=== PATIENT | female | born 1970 | race African-American/Black ===

== ENCOUNTER 2016-08-12 19:52 | Emergency (ER) | payer MEDICAID, OTHER ==
[~2016-08-12] VITALS: Ht 129.5 cm; Wt 73.9 kg
[2016-08-12 20:05] VITALS: BP 120/74
[2016-08-12] MEDS ORDERED: Famotidine 20 MG/ 2ML VIAL IVP ONE (20:15)
[2016-08-12] MEDS ORDERED: Ketorolac 30mg Inj IV ONE (20:15)
[2016-08-12 21:31] LABS: APPEARANCE,URINE CLEAR; KETONES,URINE 1+ (NEGATIVE); LEUKOCYTE ESTERASE ,URINE 1+ (NEGATIVE); NITRITE,URINE NEGATIVE (NEGATIVE); PH,URINE 7 (4.5-8.0); PROTEIN,URINE 2+ (NEGATIVE); UROBILINOGEN,URINE NORMAL MG/DL (0.0-1.0)
[2016-08-12 21:34] LABS: BASOPHILS % (AUTO) 0.7 % (0.0-2.0); EOSINOPHILS % (AUTO) 1.5 % (0.0-3.0); LYMPHOCYTES % (AUTO) 34.7 % (20.0-45.0); MEAN CORPUSCULAR HEMOGLOBIN 23.1 PG (27.0-31.0); MEAN CORPUSCULAR HGB CONC 31.5 G/DL (32.0-36.0); MEAN CORPUSCULAR VOLUME 73 FL (80-99); MEAN PLATELET VOLUME 7.1 FL (6.5-10.1); MONOCYTES % (AUTO) 7.3 % (1.0-10.0); NEUTROPHILS % (AUTO) 55.8 % (45.0-75.0); PLATELET COUNT 194 K/UL (150-450); RED BLOOD COUNT 5.18 M/UL (4.20-5.40); RED CELL DISTRIBUTION WIDTH 16.9 % (11.6-14.8); WHITE BLOOD COUNT 6.1 K/UL (4.8-10.8)
[2016-08-12 21:38] LABS: RBC,URINE 0-2 /HPF (0 - 2)
[2016-08-12 21:39] LABS: BACTERIA,URINE FEW /HPF; SQUAMOUS EPITHELIAL CELL,UR FEW /LPF (NONE/OCC)
[2016-08-12 21:45] LABS: ALANINE AMINOTRANSFERASE 35 U/L (3-33); ALBUMIN/GLOBULIN RATIO 0.9 (1.0-2.7); ANION GAP 20 (5-15); ASPARTATE AMINO TRANSFERASE 35 U/L (5-40); CARBON DIOXIDE 20 mEQ/L (20-30); CHLORIDE 86 mEQ/L (98-107); CREATININE 0.9 mg/dL (0.5-0.9); GLOMERULAR FILTRATION RATE > 60 mL/min (>60); HEMOLYSIS 2; LIPASE 40 U/L (< 60); POTASSIUM 4.2 mEQ/L (3.4-4.9); SODIUM 126 mEQ/L (135-145)
[2016-08-12 21:47] LABS: TROPONIN I < 0.30 ng/mL (<=0.30)
[2016-08-12 22:05] VITALS: BP 127/71
[2016-08-12] MEDS ORDERED: Dicyclomine HCl 10mg/5ml oral soln ORAL ONE (22:45)
--- NOTE | 2016-08-12 23:16 | Emergency Room Report ---
History of Present Illness General Chief Complaint: Abdominal Pain Source: Patient Present Illness HPI [id number] with 2-3 days nausea/vomiting, generalized abd pain, watery diarrhea. Prior cholecystectomy. No urinary complaints or fever/chills. Sick contact of mother in hospital recently for SBO. History of DM. Unable to keep liquids down "For days." Unable to eat. Allergies: Coded Allergies: No Known Allergies (Unverified , 08/12/16) Patient History Past Medical History: DM Past Surgical History: sophia Pertinent Family History: none Social History: Denies: alcohol use, drug use, smoking Last Menstrual Period: JULY 17 Now: No Immunizations: UTD Reviewed Nursing Documentation: PMH: Agreed, PSxH: Agreed Nursing Documentation-PMH Hx Hypertension: Yes Hx Diabetes: Yes Review of Systems All Other Systems: negative except mentioned in HPI Physical Exam Vital Signs Date Time Temp Pulse Resp B/P Pulse Ox O2 Delivery O2 Flow Rate FiO2 08/12/16 19:54 98.1 117 18 114/82 99 08/12/16 20:05 Room Air Sp02 EP Interpretation: reviewed, normal General Appearance: normal inspection, well appearing, no apparent distress, alert, GCS 15, non-toxic, obese Head: normocephalic, atraumatic Eyes: bilateral eye EOMI, bilateral eye PERRL ENT: normal ENT inspection, hearing grossly normal, normal voice Neck: normal inspection, full range of motion, supple, no bony tend Respiratory: normal inspection, lungs clear, normal breath sounds, no respiratory distress, no retraction, no wheezing Gastrointestinal: normal inspection, normal bowel sounds, soft, no guarding, no hernia, other - TTP to left lower quadrant Genitourinary: no CVA tenderness Musculoskeletal: normal inspection, back normal, normal range of motion, Arpita' s Sign negative Neurologic: normal inspection, alert, oriented x3, responsive, chief clinical dietitian III-XII nml as tested, motor strength/tone normal, speech normal Psychiatric: normal inspection, judgement/insight normal, mood/affect normal Skin: normal inspection, normal color, no rash Lymphatic: normal inspection Medical Decision Making Diagnostic Impression: Primary Impression: Hyponatremia Additional Impressions: Hyperglycemia Diarrhea Qualified Codes: R19.7 - Diarrhea, unspecified Viral gastroenteritis ER Course Abd pain, nausea/vomiting, diarrhea - Mild HypoNa likely from dehydration. Repleted with NS bolus. - H&H stable. No leuks to suggest acute bacterial or surgical abd process - UA with ketones also suggesting dehydration - Still with abd pain after IV pepcid so CTAP was done - c/w enteritis. No SBO or acute surgical process - Rx Bentylm, zofran, pepcid Encouraged hydration, BRAT diet at home Return to ER if unable to tolerate PO in 1-2 days despite medications DC Home EKG Diagnostic Results Rate: tachycardiac Rhythm: NSR ST Segments: no acute changes ASA given to the pt in ED: No Rhythm Strip Diag. Results EP Interpretation: yes Rate: 95 Rhythm: NSR, no PVC's, no ectopy Last Vital Signs Date Time Temp Pulse Resp B/P Pulse Ox O2 Delivery O2 Flow Rate FiO2 08/12/16 20:05 98.1 111 18 120/74 99 Room Air Status: improved Disposition: HOME, SELF-CARE Scripts Famotidine (PEPCID) 20 Mg Tablet 20 MG ORAL BID for 7 Days, #14 TAB 0 Refills Prov: CHANTELLE POP M.D. 08/12/16 Dicyclomine Hcl* (BENTYL*) 10 Mg Capsule 10 MG ORAL BID for 7 Days, #14 CAP Prov: CHANTELLE POP M.D. 08/12/16 Ondansetron Odt* (ZOFRAN ODT*) 4 Mg Tab.rapdis 4 MG ORAL BID Y for Nausea & Vomiting for 7 Days, #14 TAB 0 Refills Prov: CHANTELLE POP M.D. 08/12/16 Referrals: [facility] (PCP) CHANTELLE POP M.D. Aug 12, 2016 23:16
[2016-08-12] MEDS ORDERED: ZOFRAN ODT4 MG ORAL (23:53)
[2016-08-12] MEDS ORDERED: BENTYL10 MG ORAL (23:53)
[2016-08-12] MEDS ORDERED: PEPCID20 MG ORAL (23:53)
[2016-08-13 00:05] VITALS: BP 115/74
[2016-08-13 00:29] VITALS: BP 115/77
--- NOTE | 2016-08-13 09:35 | Diagnostic Imaging Report ---
Clinical Indication: Abdominal pain Technique: No oral contrast utilized, per emergency room physician request IV administration nonionic contrast. Venous phase spiral acquisition obtained through the abdomen and pelvis. Multiplanar reconstructions were generated. Total dose length product 944 mGycm. CTDIvol(s) 18 mGy. Dose reduction achieved using automated exposure control Comparison: None Findings: No evidence of diverticulosis or diverticulitis. The appendix is normal. Small bowel loops are somewhat prominent, somewhat fluid-filled. A single jejunal loop in the left mid abdomen is mildly dilated. There are normal caliber distal small bowel loops, but no abrupt transition is demonstrated. No free or loculated intraperitoneal air or fluid. The distal esophagus, stomach, duodenum are unremarkable. There are cholecystectomy clips incidentally noted. The liver is somewhat hypoattenuating. No biliary ductal dilatation. Pancreas, spleen, adrenals, kidneys are all unremarkable. No mesenteric or retroperitoneal mass or adenopathy. No pelvic mass or adenopathy. The included lung bases are clear. The bones are unremarkable Impression: Mildly prominent fluid-filled small bowel loops, suspect enteritis. Presence of nondilated distal small bowel raises possibility of partial small bowel obstruction, although this is deemed less likely. Correlate with clinical findings Mild fatty hepatic change Evidence of prior cholecystectomy This agrees with the preliminary interpretation provided overnight by [facility] teleradiology service. The CT scanner at [facility] is accredited by the [employer] and the scans are performed using protocols designed to limit radiation exposure to as low as reasonably achievable to attain images of sufficient resolution adequate for diagnostic evaluation.
--- NOTE | 2016-08-15 12:58 | Cardiology Report ---
APPROVED REPORT EKG Measurement Heart [id number] CT 150P51 [id number] Sinus tachycardia Rightward axis Cannot rule out Inferior infarct, age undetermined Abnormal ECG
== END 2016-08-13 00:33 | disposition home or self-care (01) ==
LOC: EMR 20:45
DX: E87.1 Hypo-osmolality and hyponatremia (principal); R19.7 Diarrhea, unspecified; A08.4 Viral intestinal infection, unspecified; Z90.49 Acquired absence of other specified parts of digestive tract; E11.9 Type 2 diabetes mellitus without complications; I10 Essential (primary) hypertension; E11.65 Type 2 diabetes mellitus with hyperglycemia; R00.0 Tachycardia, unspecified
CPT/HCPCS: 36415; 74177; 80053; 81003; 81025; 83690; 84484; 85025; 93005; 96360; 96374; 96375; 99284; J2405; Q9967; S0028

== ENCOUNTER 2017-10-15 19:59 | Inpatient (IN) | payer MEDICAID, OTHER ==
[~2017-10-15] VITALS: Ht 127 cm; Wt 74.4 kg
[~2017-10-15 19:59] MED LIST: BENTYL10 MG ORAL; PEPCID20 MG ORAL; ZOFRAN ODT4 MG ORAL
[2017-10-15] MEDS ORDERED: DiphenhydrAMINE 50mg/ml Inj IVP ONE (20:30)
[2017-10-15] MEDS ORDERED: Morphine Sulfate 4mg/ml Inj (IV USE ONLY) IVP ONE (20:30)
[2017-10-15] MEDS ORDERED: cefTRIAXone 1 GM in NS 55 ML IV ONE (20:30)
[2017-10-15] MEDS ORDERED: Ketorolac 30mg Inj IV ONE (20:30)
[2017-10-15 21:02] LABS: ANION GAP 8 mmol/L (5-15); BLOOD UREA NITROGEN 14 mg/dL (7-18); CALCIUM 9.4 MG/DL (8.5-10.1); CARBON DIOXIDE 26 MMOL/L (21-32); CHLORIDE 104 MMOL/L (98-107); POTASSIUM 4.2 MMOL/L (3.5-5.1); SODIUM 138 MMOL/L (136-145)
[2017-10-15 21:06] LABS: ALANINE AMINOTRANSFERASE 25 U/L (12-78); ALBUMIN 3.5 G/DL (3.4-5.0); ALBUMIN/GLOBULIN RATIO 0.7 (1.0-2.7); ALKALINE PHOSPHATASE 103 U/L (46-116); ASPARTATE AMINO TRANSFERASE 23 U/L (15-37); BILIRUBIN,TOTAL 0.2 MG/DL (0.2-1.0)
[2017-10-15 21:08] VITALS: BP 99/39
[2017-10-15 21:27] LABS: HEMOGLOBIN 7.7 G/DL (12.0-16.0); MEAN CORPUSCULAR VOLUME 75 FL (80-99); PLATELET COUNT 239 K/UL (150-450); RED BLOOD COUNT 3.33 M/UL (4.20-5.40); RED CELL DISTRIBUTION WIDTH 15.5 % (11.6-14.8); WHITE BLOOD COUNT 10.7 K/UL (4.8-10.8)
[2017-10-15 21:28] LABS: APPEARANCE,URINE CLEAR; BILIRUBIN, URINE NEGATIVE (NEGATIVE); COLOR,URINE PALE YELLOW; GLUCOSE, URINE (UA) NEGATIVE (NEGATIVE); KETONES,URINE NEGATIVE (NEGATIVE); LEUKOCYTE ESTERASE ,URINE 3+ (NEGATIVE); NITRITE,URINE NEGATIVE (NEGATIVE); PH,URINE 6.5 (4.5-8.0); PROTEIN,URINE NEGATIVE (NEGATIVE); UROBILINOGEN,URINE NORMAL MG/DL (0.0-1.0)
--- NOTE | 2017-10-15 22:07 | Emergency Room Report ---
History of Present Illness General Chief Complaint: Abnormal Labs Source: Patient Present Illness HPI Patient presents with 2-3 days of sore throat and r ear pain. She was being evaluated for this and had labs 2 days ago which she was called about and told she had a hgb of 7. She has also had some dyspnea on exertion and some chest pain. The chest pain is substernal, non-exertional. The main pain is in her throat and R ear. These are rated 8/10, sharp, constant and worsened with swallowing. She took mortin 600 which did nothing for the pain. 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 She is diabetic on oral meds and states no polies, though has been feeling dehydrated. No rashes. No NVD. No melena. Asked several times if heavy menses and she denies. Allergies: Coded Allergies: No Known Allergies (Unverified , 08/12/16) Patient History Past Medical History: see triage record Social History: Denies: smoking Social History Narrative from home, bilingual Now: No Reviewed Nursing Documentation: PMH: Agreed; PSxH: Agreed Nursing Documentation-PMH Hx Hypertension: Yes Hx Diabetes: Yes Review of Systems All Other Systems: negative except mentioned in HPI Physical Exam Vital Signs Date Time Temp Pulse Resp B/P (MAP) Pulse Ox O2 Delivery O2 Flow Rate FiO2 10/15/17 20:02 98.3 112 20 100/62 95 Room Air 98.2 Sp02 EP Interpretation: reviewed, abnormal - slightly low General Appearance: well appearing, no apparent distress, GCS 15 Head: normocephalic, atraumatic Eyes: bilateral eye PERRL, bilateral eye conjunctivae pale ENT: hearing grossly normal, no angioedema, normal voice, moist mucus membranes , pharyngeal erythema, other - R TM red Neck: supple Respiratory: lungs clear, normal breath sounds Cardiovascular #1: no edema, tachycardia Cardiovascular #2: 2+ radial (R) Gastrointestinal: non tender, no mass, no organomegaly, no guarding, no rebound , overweight Rectal: heme negative stool - brown Musculoskeletal: back normal, digits/nails normal, gait/station normal, normal range of motion, no calf tenderness, Arpita's Sign negative Neurologic: oriented x3, normal gait, speech normal, grossly normal Psychiatric: mood/affect normal Skin: pallor Procedures Critical Care Time Critical Care Time Total Critical Care Time: min bedside evaluation and treatment excludes procedures (EKG). Reason for critical care: profound anemia, hypotension, infection Possible complications: hypotension, hypertension, ND, shock, arrhythmias, metabolic acidosis, end organ damage, respiratory failure. Interventions: antibiotics, transfusions, analgesia, hydration Course: Patient with R otitis and symptomatic anemia. Hydration and antibiotics ordered. Hypotensive after 2 liters. Emergent blood transfusions ordered - risk and benefits explained. Improved BP. Repeated evaluations. Discussion with MICHAEL SOSA and admitting MD. Consultations: nursing staff, blood bank, MICHAEL SOSA, admitting MD Performed by: Dr. Dejesus Tolerated well condition = serious Medical Decision Making Diagnostic Impression: Primary Impression: Profound anemia Qualified Codes: D50.9 - Iron deficiency anemia, unspecified Additional Impressions: Right otitis media Qualified Codes: H66.001 - Acute suppurative otitis media without spontaneous rupture of ear drum, right ear Dyspnea Qualified Codes: R06.09 - Other forms of dyspnea Chest pain Qualified Codes: R07.9 - Chest pain, unspecified Diabetes Qualified Codes: E11.8 - Type 2 diabetes mellitus with unspecified complications Transient hypotension ER Course Patient presents with URI with evidence of OM R and dyspnea and CP. DDx: AMI, ACS, symptomatic anemia, rheumatic fever/strep related sequelae amongst others. No evidence of acute blood loss and denies sig vaginal blood loss. Other considerations of hemolytic process possible. Evaluation with EKG, CXR, labs. Will treat otitis media with rocephin and analgesics. Will treat with IV hydration. Concern over co-morbidity of diabetes. Labs with normal WBC, critical low H/H. Microcytic indices suggest iron deficiency anemia has some chronicity, however symptoms suggest acute change. UA essentially negative. Glucose 186. Hypotensive (SBP = 83) with low H/H after 2 liters. Non-transferrable and needs emergent transfusion. Risks and benefits discussed with patient. Discussed with Dr. Calvert who agrees with non-transfer. Blood pressure is better after receiving some blood. Discussed with Dr. Galindo. Admit telemetry. Laboratory Tests Test 10/15/17 20:30 10/15/17 21:13 10/15/17 21:15 Sodium Level 138 MMOL/L (136-145) Potassium Level 4.2 MMOL/L (3.5-5.1) Chloride Level 104 MMOL/L (98-107) Carbon Dioxide Level 26 MMOL/L (21-32) Anion Gap 8 mmol/L (5-15) Blood Urea Nitrogen 14 mg/dL (7-18) Creatinine 1.0 MG/DL (0.55-1.30) Estimate Glomerular Filtration Rate > 60 mL/min (>60) Glucose Level 186 MG/DL (74-106) H Calcium Level 9.4 MG/DL (8.5-10.1) Total Bilirubin 0.2 MG/DL (0.2-1.0) Aspartate Amino Transferase (AST) 23 U/L (15-37) Alanine Aminotransferase (ALT) 25 U/L (12-78) Alkaline Phosphatase 103 U/L (46-116) Troponin I 0.000 ng/mL (0.000-0.056) Total Protein 8.2 G/DL (6.4-8.2) Albumin 3.5 G/DL (3.4-5.0) Globulin 4.7 g/dL Albumin/Globulin Ratio 0.7 (1.0-2.7) L Lipase 347 U/L (73-393) Urine Color Pale yellow Urine Appearance Clear Urine pH 6.5 (4.5-8.0) Urine Specific [place] 1.010 (1.005-1.035) Urine Protein Negative (NEGATIVE) Urine Glucose (UA) Negative (NEGATIVE) Urine Ketones Negative (NEGATIVE) Urine Occult Blood Negative (NEGATIVE) Urine Nitrite Negative (NEGATIVE) Urine Bilirubin Negative (NEGATIVE) Urine Urobilinogen Normal MG/DL (0.0-1.0) Urine Leukocyte Esterase 3+ (NEGATIVE) H Urine RBC 0-2 /HPF (0 - 2) Urine WBC 0-2 /HPF (0 - 2) Urine Squamous Epithelial Cells Few /LPF (NONE/OCC) Urine Bacteria Few /HPF (NONE) Urine HCG, Qualitative Negative (NEGATIVE) White Blood Count 10.7 K/UL (4.8-10.8) Red Blood Count 3.33 M/UL (4.20-5.40) L Hemoglobin 7.7 G/DL (12.0-16.0) L Hematocrit 25.0 % (37.0-47.0) L Mean Corpuscular Volume 75 FL (80-99) L Mean Corpuscular Hemoglobin 23.3 PG (27.0-31.0) L Mean Corpuscular Hemoglobin Concent 31.0 G/DL (32.0-36.0) L Red Cell Distribution Width 15.5 % (11.6-14.8) H Platelet Count 239 K/UL (150-450) Mean Platelet Volume 6.2 FL (6.5-10.1) L Neutrophils (%) (Auto) % (45.0-75.0) Lymphocytes (%) (Auto) % (20.0-45.0) Monocytes (%) (Auto) % (1.0-10.0) Eosinophils (%) (Auto) % (0.0-3.0) Basophils (%) (Auto) % (0.0-2.0) Differential Total Cells Counted 100 Neutrophils % (Manual) 74 % (45-75) Lymphocytes % (Manual) 20 % (20-45) Monocytes % (Manual) 4 % (1-10) Eosinophils % (Manual) 1 % (0-3) Basophils % (Manual) 0 % (0-2) Band Neutrophils 1 % (0-8) Platelet Estimate Adequate Platelet Morphology Normal Polychromasia 1+ Hypochromasia 2+ Anisocytosis 1+ Microcytosis 1+ Prothrombin Time 10.2 SEC (9.30-11.50) Prothrombin Time INR 1.0 (0.9-1.1) PTT 28 SEC (23-33) EKG Diagnostic Results Rate: tachycardiac ST Segments: no acute changes Rhythm Strip Diag. Results EP Interpretation: yes Rhythm: no PVC's, no ectopy, other - ST Chest X-Ray Diagnostic Results Chest X-Ray Diagnostic Results : Chest X-Ray Ordered: Yes # of Views/Limited/Complete: 1 View Indication: Shortness of Breath Interpretation: no consolidation, no effusion, no pneumothorax Other X-Ray Diagnostic Results Other X-Ray Diagnostic Results : # of Views/Limited Vs Complete: 2 View Indication: Other Interpretation: nonspecific bowel gas, no sbo, other - RUQ clips Impression: Other Electronically Signed by: Electronically signed by Graham Dejesus MD Last Vital Signs Date Time Temp Pulse Resp B/P (MAP) Pulse Ox O2 Delivery O2 Flow Rate FiO2 10/15/17 23:28 98.3 99 13 95/50 100 Room Air 208.9 Status: improved Disposition: ADMITTED INPATIENT Condition: Serious Referrals: [facility]ERR[facility] (PCP) Graham Dejesus M.D. Oct 15, 2017 22:07
[2017-10-15 22:40] VITALS: BP 95/50
[2017-10-15] MEDS ORDERED: CYMBALTA60 MG ORAL (22:57)
[2017-10-15] MEDS ORDERED: NAPROXEN500 M1 ORAL (22:57)
[2017-10-15] MEDS ORDERED: PRAVACHOL40 MG ORAL (22:57)
[2017-10-15] MEDS ORDERED: ELIQUIS5 MG PO (22:57)
[2017-10-15] MEDS ORDERED: SERTRALINE HCL50 MG ORAL (22:57)
[2017-10-15] MEDS ORDERED: METFORMIN HCL850 M1 ORAL (22:57)
[2017-10-15] MEDS ORDERED: GABAPENTIN300 MG ORAL (22:57)
[2017-10-15] MEDS ORDERED: PRINIVIL10 MG ORAL (22:57)
[2017-10-16] VITALS: BP 90/52
[2017-10-16] MEDS ORDERED: Morphine Sulfate 4mg/ml Inj (IV USE ONLY) IVP PRN (02:15)
[2017-10-16] MEDS: Morphine Sulfate 4mg/ml Inj (IV USE ONLY) IVP PRN ×3 (03:31→20:44)
[2017-10-16 04:00] VITALS: BP 100/66
[2017-10-16 05:16] LABS: BASOPHILS % (AUTO) 0.4 % (0.0-2.0); EOSINOPHILS % (AUTO) 1.7 % (0.0-3.0); HEMOGLOBIN 9.7 G/DL (12.0-16.0); LYMPHOCYTES % (AUTO) 30.2 % (20.0-45.0); MEAN CORPUSCULAR VOLUME 79 FL (80-99); MONOCYTES % (AUTO) 7.3 % (1.0-10.0); NEUTROPHILS % (AUTO) 60.5 % (45.0-75.0); PLATELET COUNT 213 K/UL (150-450); RED BLOOD COUNT 3.92 M/UL (4.20-5.40); RED CELL DISTRIBUTION WIDTH 16.8 % (11.6-14.8); WHITE BLOOD COUNT 8.3 K/UL (4.8-10.8)
[2017-10-16] MEDS: NovoLOG Insulin Flexpen SUBQ SCH ×4 (06:02→20:43)
[2017-10-16 08:00] VITALS: BP 121/74
--- NOTE | 2017-10-16 08:06 | Consultation ---
Consult Note Consult Note Hematology/Oncology Consult DOS: 10/16/17 RFC: anemia rome WALTERS MD: Michael Regan HPI Patient presents with 2-3 days of sore throat and r ear pain. She was being evaluated for this and had labs 2 days ago which she was called about and told she had a hgb of 7. She has also had some dyspnea on exertion and some chest pain. The chest pain is substernal, non-exertional. The main pain is in her throat and R ear. These are rated 8/10, sharp, constant and worsened with swallowing. She took mortin 600 which did nothing for the pain. 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 She is diabetic on oral meds and states no polies, though has been feeling dehydrated. No rashes. No NVD. No melena. Asked several times if heavy menses and she denies. Noted to be anemic at this time, no recent gi bleed noted All: No Known Allergies (Unverified , 08/12/16)A Past Medical History: see triage record Social History: Denies: smoking Social History Narrative from home, bilingual Now: No Reviewed Nursing Documentation: PMH: Agreed; PSxH: Agreed Nursing Documentation-PMH Hx Hypertension: Yes Hx Diabetes: Yes ER ROS - General Review of Systems All Other Systems: negative except mentioned in HPI ER Physical Exam - General Physical Exam Last 24 Hour Vital Signs Date Time Temp Pulse Resp B/P (MAP) Pulse Ox O2 Delivery O2 Flow Rate FiO2 10/16/17 04:00 103 10/16/17 04:00 97.9 91 20 100/66 (77) 95 97.9 10/16/17 00:01 Room Air 10/16/17 00:00 104 10/16/17 00:00 98.0 100 20 90/52 (65) 100 98.0 10/15/17 23:28 98.3 99 13 95/50 100 Room Air 208.9 10/15/17 22:40 99 13 95/50 100 Room Air 10/15/17 21:08 102 22 99/39 100 Room Air 10/15/17 20:51 98.3 10/15/17 20:49 98.3 10/15/17 20:02 98.3 112 20 100/62 95 Room Air 98.2 Sp02 EP Interpretation: reviewed, abnormal - slightly low General Appearance: well appearing, no apparent distress, GCS 15 Head: normocephalic, atraumatic Eyes: bilateral eye PERRL, bilateral eye conjunctivae pale ENT: hearing grossly normal, no angioedema, normal voice, moist mucus membranes , pharyngeal erythema, other - R TM red Neck: supple Respiratory: lungs clear, normal breath sounds Cardiovascular #1: no edema, tachycardia Cardiovascular #2: 2+ radial (R) Gastrointestinal: non tender, no mass, no organomegaly Rectal: heme negative stool - brown Musculoskeletal: back normal, digits/nails bonnie Neurologic: oriented x3, normal gait Psychiatric: mood/affect normal Skin: pallor Laboratory Tests Test 10/15/17 20:30 10/15/17 21:13 10/15/17 21:15 10/16/17 05:00 Sodium Level 138 MMOL/L (136-145) Potassium Level 4.2 MMOL/L (3.5-5.1) Chloride Level 104 MMOL/L (98-107) Carbon Dioxide Level 26 MMOL/L (21-32) Anion Gap 8 mmol/L (5-15) Blood Urea Nitrogen 14 mg/dL (7-18) Creatinine 1.0 MG/DL (0.55-1.30) Estimat Glomerular Filtration Rate > 60 mL/min (>60) Glucose Level 186 MG/DL (74-106) H Calcium Level 9.4 MG/DL (8.5-10.1) Total Bilirubin 0.2 MG/DL (0.2-1.0) Aspartate Amino Transf (AST/SGOT) 23 U/L (15-37) Alanine Aminotransferase (ALT/SGPT) 25 U/L (12-78) Alkaline Phosphatase 103 U/L (46-116) Troponin I 0.000 ng/mL (0.000-0.056) Total Protein 8.2 G/DL (6.4-8.2) Albumin 3.5 G/DL (3.4-5.0) Globulin 4.7 g/dL Albumin/Globulin Ratio 0.7 (1.0-2.7) L Lipase 347 U/L (73-393) Urine Color Pale yellow Urine Appearance Clear Urine pH 6.5 (4.5-8.0) Urine Specific [place] 1.010 (1.005-1.035) Urine Protein Negative (NEGATIVE) Urine Glucose (UA) Negative (NEGATIVE) Urine Ketones Negative (NEGATIVE) Urine Occult Blood Negative (NEGATIVE) Urine Nitrite Negative (NEGATIVE) Urine Bilirubin Negative (NEGATIVE) Urine Urobilinogen Normal MG/DL (0.0-1.0) Urine Leukocyte Esterase 3+ (NEGATIVE) H Urine RBC 0-2 /HPF (0 - 2) Urine WBC 0-2 /HPF (0 - 2) Urine Squamous Epithelial Cells Few /LPF (NONE/OCC) Urine Bacteria Few /HPF (NONE) Urine HCG, Qualitative Negative (NEGATIVE) White Blood Count 10.7 K/UL (4.8-10.8) 8.3 K/UL (4.8-10.8) Red Blood Count 3.33 M/UL (4.20-5.40) L 3.92 M/UL (4.20-5.40) L Hemoglobin 7.7 G/DL (12.0-16.0) L 9.7 G/DL (12.0-16.0) L Hematocrit 25.0 % (37.0-47.0) L 31.0 % (37.0-47.0) L Mean Corpuscular Volume 75 FL (80-99) L 79 FL (80-99) L Mean Corpuscular Hemoglobin 23.3 PG (27.0-31.0) L 24.8 PG (27.0-31.0) L Mean Corpuscular Hemoglobin Concent 31.0 G/DL (32.0-36.0) L 31.3 G/DL (32.0-36.0) L Red Cell Distribution Width 15.5 % (11.6-14.8) H 16.8 % (11.6-14.8) H Platelet Count 239 K/UL (150-450) 213 K/UL (150-450) Mean Platelet Volume 6.2 FL (6.5-10.1) L 6.7 FL (6.5-10.1) Neutrophils (%) (Auto) % (45.0-75.0) 60.5 % (45.0-75.0) Lymphocytes (%) (Auto) % (20.0-45.0) 30.2 % (20.0-45.0) Monocytes (%) (Auto) % (1.0-10.0) 7.3 % (1.0-10.0) Eosinophils (%) (Auto) % (0.0-3.0) 1.7 % (0.0-3.0) Basophils (%) (Auto) % (0.0-2.0) 0.4 % (0.0-2.0) Differential Total Cells Counted 100 Neutrophils % (Manual) 74 % (45-75) Lymphocytes % (Manual) 20 % (20-45) Monocytes % (Manual) 4 % (1-10) Eosinophils % (Manual) 1 % (0-3) Basophils % (Manual) 0 % (0-2) Band Neutrophils 1 % (0-8) Platelet Estimate Adequate Platelet Morphology Normal Polychromasia 1+ Hypochromasia 2+ Anisocytosis 1+ Microcytosis 1+ Prothrombin Time 10.2 SEC (9.30-11.50) Prothromb Time International Ratio 1.0 (0.9-1.1) Activated Partial Thromboplast Time 28 SEC (23-33) Assessment and Recs: # Anemia of iron deficiency - unknown source, no hx of heavy menses --> microcytosis indices, has no baseline here --> consider gi eval as needed, occult blood ordered --> anemia panel has been ordered, results pending TSH, ferritin, iron panel, retic, ss trait --> transfuse to hgb >7 # Right otitis media - consider exam and abx as needed --> rocephin given # Chest pain r/o acs # Diabetes # Transient hypotension GREATLY APPRECIATE Consultation. Leo Marlow MD Oct 16, 2017 08:05
--- NOTE | 2017-10-16 10:21 | Diagnostic Imaging Report ---
Indication: Chest pain Technique: One view of the chest Comparison: none Findings: Lungs and pleural spaces are clear. Heart size is normal Impression: No acute process
--- NOTE | 2017-10-16 10:22 | Diagnostic Imaging Report ---
Indication: Abdominal pain Technique: Supine view of the abdomen Comparison: none Findings: Bowel gas pattern is unremarkable. No unusual masses or calcific lesions. There are cholecystectomy clips Impression: No acute process
[2017-10-16 11:36] LABS: FERRITIN 6 NG/ML (8-388)
[2017-10-16 11:50] LABS: % IRON SATURATION 7 % (15-50); IRON 21 ug/dL (50-175); TOTAL IRON BINDING CAPACITY 313 ug/dL (250-450)
[2017-10-16 12:00] VITALS: BP 115/74
--- NOTE | 2017-10-16 15:43 | Consultation ---
History of Present Illness General Date patient seen: Oct 16, 2017 Time patient seen: 15:35 Chief Complaint: Abnormal Labs Referring physician: Dr. Rich Reason for Consultation: Shortness of breath Present Illness HPI 46 y/o female w/ hx DM, obesity, PE diagnosed 3-4 months ago (no apparent eval for DVT) and has been on eliquis with finding of anemia on blood work. Notes several months of chest pain, shortness of breath. Gets lightheaded with standing up to quickly. Denies bleeding. No black or bloody stools. No abdominal pain. Denies heavy periods. Etiology of PE was apparently never found and she had no f/u as to when to stop anticogulation. In ED given PRBC transfusion. Allergies: Coded Allergies: No Known Allergies (Unverified , 08/12/16) Medication History Scheduled Dicyclomine Hcl* (Bentyl*), 10 MG ORAL BID Duloxetine Hcl* (Cymbalta*), 60 MG ORAL DAILY, (Reported) Famotidine (Pepcid), 20 MG ORAL BID Gabapentin* (Gabapentin*), 300 MG ORAL BEDTIME, (Reported) Lisinopril* (Prinivil*), 10 MG ORAL DAILY, (Reported) Metformin Hcl* (Metformin Hcl*), 850 MG ORAL DAILY, (Reported) Naproxen* (Naproxen*), 500 MG ORAL TWICE A DAY, (Reported) Pravastatin Sodium (Pravachol), 40 MG ORAL BEDTIME, (Reported) Sertraline Hcl* (Zoloft*), 50 MG ORAL DAILY, (Reported) Scheduled PRN Ondansetron Odt* (Zofran Odt*), 4 MG ORAL BID PRN for Nausea & Vomiting Miscellaneous Medications Apixaban (Eliquis), 5 MG PO, (Reported) Patient History History Provided By: Patient, Medical Record Healthcare decision maker Resuscitation status Full Code Advanced Directive on File No Past Medical/Surgical History Past Medical/Surgical History: (1) Pulmonary embolism (2) Diabetes (3) Right otitis media Review of Systems Constitutional: Reports: see HPI Eye: Reports: no symptoms ENT: Reports: ear pain Respiratory: Reports: shortness of breath Cardiovascular: Reports: chest pain Gastrointestinal: Reports: no symptoms Genitourinary: Reports: no symptoms Musculoskeletal: Reports: no symptoms Endocrine: Reports: no symptoms Hematologic/Lymphatic: Reports: anemia Physical Exam General Appearance: no apparent distress, alert HEENT: normocephalic, atraumatic, anicteric, mucous membranes moist, PERRL Neck: supple Respiratory/Chest: lungs clear Cardiovascular/Chest: normal rate, regular rhythm Abdomen: normal bowel sounds, non tender, soft Extremities: no edema Last 24 Hour Vital Signs Date Time Temp Pulse Resp B/P (MAP) Pulse Ox O2 Delivery O2 Flow Rate FiO2 10/16/17 14:55 99.0 10/16/17 09:00 Room Air 10/16/17 08:00 99.0 95 20 121/74 (90) 95 99.0 10/16/17 04:00 103 10/16/17 04:00 97.9 91 20 100/66 (77) 95 97.9 10/16/17 00:01 Room Air 10/16/17 00:00 104 10/16/17 00:00 98.0 100 20 90/52 (65) 100 98.0 10/15/17 23:28 98.3 99 13 95/50 100 Room Air 208.9 10/15/17 22:40 99 13 95/50 100 Room Air 10/15/17 21:08 102 22 99/39 100 Room Air 10/15/17 20:51 98.3 10/15/17 20:49 98.3 10/15/17 20:02 98.3 112 20 100/62 95 Room Air 98.2 Intake and Output 10/15/17 10/16/17 19:00 07:00 Intake Total 120 ml Balance 120 ml Intake Oral 120 ml # Voids 1 Laboratory Tests Test 10/15/17 20:30 10/15/17 21:13 10/15/17 21:15 10/16/17 05:00 Sodium Level 138 MMOL/L (136-145) Potassium Level 4.2 MMOL/L (3.5-5.1) Chloride Level 104 MMOL/L (98-107) Carbon Dioxide Level 26 MMOL/L (21-32) Anion Gap 8 mmol/L (5-15) Blood Urea Nitrogen 14 mg/dL (7-18) Creatinine 1.0 MG/DL (0.55-1.30) Estimat Glomerular Filtration Rate > 60 mL/min (>60) Glucose Level 186 MG/DL (74-106) H Calcium Level 9.4 MG/DL (8.5-10.1) Total Bilirubin 0.2 MG/DL (0.2-1.0) Aspartate Amino Transf (AST/SGOT) 23 U/L (15-37) Alanine Aminotransferase (ALT/SGPT) 25 U/L (12-78) Alkaline Phosphatase 103 U/L (46-116) Troponin I 0.000 ng/mL (0.000-0.056) Total Protein 8.2 G/DL (6.4-8.2) Albumin 3.5 G/DL (3.4-5.0) Globulin 4.7 g/dL Albumin/Globulin Ratio 0.7 (1.0-2.7) L Lipase 347 U/L (73-393) Urine Color Pale yellow Urine Appearance Clear Urine pH 6.5 (4.5-8.0) Urine Specific [place] 1.010 (1.005-1.035) Urine Protein Negative (NEGATIVE) Urine Glucose (UA) Negative (NEGATIVE) Urine Ketones Negative (NEGATIVE) Urine Occult Blood Negative (NEGATIVE) Urine Nitrite Negative (NEGATIVE) Urine Bilirubin Negative (NEGATIVE) Urine Urobilinogen Normal MG/DL (0.0-1.0) Urine Leukocyte Esterase 3+ (NEGATIVE) H Urine RBC 0-2 /HPF (0 - 2) Urine WBC 0-2 /HPF (0 - 2) Urine Squamous Epithelial Cells Few /LPF (NONE/OCC) Urine Bacteria Few /HPF (NONE) Urine HCG, Qualitative Negative (NEGATIVE) White Blood Count 10.7 K/UL (4.8-10.8) 8.3 K/UL (4.8-10.8) Red Blood Count 3.33 M/UL (4.20-5.40) L 3.92 M/UL (4.20-5.40) L Hemoglobin 7.7 G/DL (12.0-16.0) L 9.7 G/DL (12.0-16.0) L Hematocrit 25.0 % (37.0-47.0) L 31.0 % (37.0-47.0) L Mean Corpuscular Volume 75 FL (80-99) L 79 FL (80-99) L Mean Corpuscular Hemoglobin 23.3 PG (27.0-31.0) L 24.8 PG (27.0-31.0) L Mean Corpuscular Hemoglobin Concent 31.0 G/DL (32.0-36.0) L 31.3 G/DL (32.0-36.0) L Red Cell Distribution Width 15.5 % (11.6-14.8) H 16.8 % (11.6-14.8) H Platelet Count 239 K/UL (150-450) 213 K/UL (150-450) Mean Platelet Volume 6.2 FL (6.5-10.1) L 6.7 FL (6.5-10.1) Neutrophils (%) (Auto) % (45.0-75.0) 60.5 % (45.0-75.0) Lymphocytes (%) (Auto) % (20.0-45.0) 30.2 % (20.0-45.0) Monocytes (%) (Auto) % (1.0-10.0) 7.3 % (1.0-10.0) Eosinophils (%) (Auto) % (0.0-3.0) 1.7 % (0.0-3.0) Basophils (%) (Auto) % (0.0-2.0) 0.4 % (0.0-2.0) Differential Total Cells Counted 100 100 Neutrophils % (Manual) 74 % (45-75) 58 % (45-75) Lymphocytes % (Manual) 20 % (20-45) 28 % (20-45) Monocytes % (Manual) 4 % (1-10) 8 % (1-10) Eosinophils % (Manual) 1 % (0-3) 4 % (0-3) H Basophils % (Manual) 0 % (0-2) 0 % (0-2) Band Neutrophils 1 % (0-8) 2 % (0-8) Platelet Estimate Adequate Adequate Platelet Morphology Normal Normal Polychromasia 1+ Hypochromasia 2+ 1+ Anisocytosis 1+ 1+ Microcytosis 1+ 1+ Prothrombin Time 10.2 SEC (9.30-11.50) Prothromb Time International Ratio 1.0 (0.9-1.1) Activated Partial Thromboplast Time 28 SEC (23-33) Test 10/16/17 10:05 Reticulocyte Count 2.1 % (0.0-2.0) H Sickle Cell Screen Pending Fibrinogen 500 mg/dL (200-400) H Uric Acid 3.4 MG/DL (2.6-7.2) Iron Level 21 ug/dL (50-175) L Total Iron Binding Capacity 313 ug/dL (250-450) Percent Iron Saturation 7 % (15-50) L Unsaturated Iron Binding 292 ug/dL (112-346) Ferritin 6 NG/ML (8-388) L Vitamin B12 Level 538 PG/ML (193-986) Folate 13.4 NG/ML (8.6-58.9) Homocystine Pending Thyroid Stimulating Hormone (TSH) 2.441 uiU/mL (0.358-3.740) Height (Feet): 4 Height (Inches): 2.00 Weight (Pounds): 164 Medications Current Medications Medications (Trade) Dose Ordered Sig/Juan Route PRN Reason Start Time Stop Time Status Last Admin Dose Admin Acetaminophen (Tylenol) 650 mg Q4H PRN ORAL Mild Pain/Temp > 100.5 10/16/17 00:30 11/15/17 00:29 Dextrose (Dextrose 50%) 25 ml STAT PRN IV Hypoglycemia 10/16/17 00:30 11/15/17 00:29 Dextrose (Dextrose 50%) 50 ml STAT PRN IV Hypoglycemia 10/16/17 00:30 11/15/17 00:29 Insulin Aspart (NovoLOG) BEFORE MEALS AND HS SUBQ 10/16/17 06:30 11/15/17 06:29 Morphine Sulfate (Morphine Sulfate) 4 mg Q4H PRN IVP For Pain 10/16/17 02:28 10/23/17 02:27 10/16/17 14:55 Assessment/Plan Problem List: (1) Dyspnea ICD Codes: R06.00 - Dyspnea, unspecified SNOMED: 845693352 Qualifiers: Qualified Codes: R06.09 - Other forms of dyspnea (2) Profound anemia ICD Codes: D64.9 - Anemia, unspecified SNOMED: 291176235 Qualifiers: Qualified Codes: D50.9 - Iron deficiency anemia, unspecified (3) Right otitis media ICD Codes: H66.91 - Otitis media, unspecified, right ear SNOMED: 54298079 Qualifiers: Qualified Codes: H66.001 - Acute suppurative otitis media without spontaneous rupture of ear drum, right ear (4) Transient hypotension ICD Codes: I95.9 - Hypotension, unspecified SNOMED: 97995982319895 (5) Chest pain ICD Codes: R07.9 - Chest pain, unspecified SNOMED: 34843538 Qualifiers: Qualified Codes: R07.9 - Chest pain, unspecified (6) Pulmonary embolism ICD Codes: I26.99 - Other pulmonary embolism without acute cor pulmonale SNOMED: 41841041 Assessment/Plan Plan: -monitor H/H -hold eliquis, will need to confirm initial date of PE diagnosis, would likely have been able to stop after 3 months unless there was a special circumstance -if continued downtrend in H/H and not felt to be GI bleeding or due to menses, may need to consider evaluation for retroperitoneal bleed -check duplex b/l LE r/o DVT, if present may need IVC filter placement TRISTAN REBOLLAR Oct 16, 2017 15:43
[2017-10-16 16:00] VITALS: BP 119/74
[2017-10-16 20:00] VITALS: BP 137/83
--- NOTE | 2017-10-16 21:00 | History and Physical Report ---
DATE OF ADMISSION: 10/15/2017 HISTORY OF PRESENT ILLNESS: The patient is admitted for chest pain, anemia, hypotension, and shortness of breath. The patient claims that she has chest pain for one day. Also, history of PE for which she takes Eliquis. The patient has shortness of breath and weak and dizzy and felt syncopal episodes for the past day or two. The patient denies nausea, vomiting, or diarrhea. No fever or chills. No night sweats. Denies any cough. Denies orthopnea. PAST MEDICAL HISTORY: Significant for pulmonary embolism, anemia, non-insulin dependent diabetes mellitus, possible neuropathy, hypertension, degenerative joint disease, hyperlipidemia, mood disorder, and depression. PAST SURGICAL HISTORY: and cholecystectomy. MEDICATIONS: Cymbalta, famotidine, gabapentin, lisinopril, metformin, pravastatin, and sertraline. ALLERGIES: No known allergies. FAMILY HISTORY: Does have history of diabetes and hypertension. SOCIAL HISTORY: Denies history of smoking, alcohol, or illicit drugs. REVIEW OF SYSTEMS: HEENT: Denies headaches. RESPIRATORY: Reports shortness of breath for one day. Denies cough. CARDIOVASCULAR: Reports chest pain for one day. No radiation. No palpitation. No wheezing. GASTROINTESTINAL: Denies nausea, vomiting, or diarrhea. Does have history of heartburn. EXTREMITY: Denies pain in the extremities. CUMULATIVE EFFECTS ANALYST: No change in vision or speech pattern. Feels weak in general. PHYSICAL EXAMINATION: VITAL SIGNS: Temperature 98.3, pulse is 99, and blood pressure is 95/52. HEENT: PERRLA. NECK: Supple. No lymphadenopathy. CHEST: Clear to auscultation. GASTROINTESTINAL: Soft, nontender, and nondistended. No organomegaly. EXTREMITIES: No edema. Moves all four extremities. NEUROLOGIC: Sensory intact to light touch. Reflexes are equal on both sides. Has generalized weakness. LABORATORY DATA: WBC of 10.7, hemoglobin 7.7, and platelets of 249,000. Sodium 138, potassium 4.2, chloride 104, BUN of 14, creatinine of 1, and glucose of 186. ASSESSMENT: 1. Hypotension. 2. Anemia. 3. Shortness of breath. 4. Non-insulin dependent diabetes mellitus. 5. History of pulmonary embolism. 6. Chest pain for one day. 7. Weak and dizzy and presyncopal. PLAN: I have asked Dr. Marlow, Dr. Cancino, Dr. Mena, Dr. Sears, and Dr. Payne to see the patient for the treatment and of the above-mentioned diagnoses. Randy Stanley M.D. DR: AMADO JOB#: [id number] CC:
--- NOTE | 2017-10-16 23:33 | Consultation ---
History of Present Illness General Date patient seen: Oct 16, 2017 Chief Complaint: Abnormal Labs Referring physician: Dr. Rich Reason for Consultation: Shortness of breath Present Illness HPI 46 y/o female w/ hx DM, obesity, PE diagnosed 3-4 months ago (no apparent eval for DVT) and has been on eliquis with finding of anemia on blood work. the pt pw depressed mood and anxiety Allergies: Coded Allergies: No Known Allergies (Unverified , 08/12/16) Medication History Scheduled Dicyclomine Hcl* (Bentyl*), 10 MG ORAL BID Duloxetine Hcl* (Cymbalta*), 60 MG ORAL DAILY, (Reported) Famotidine (Pepcid), 20 MG ORAL BID Gabapentin* (Gabapentin*), 300 MG ORAL BEDTIME, (Reported) Lisinopril* (Prinivil*), 10 MG ORAL DAILY, (Reported) Metformin Hcl* (Metformin Hcl*), 850 MG ORAL DAILY, (Reported) Naproxen* (Naproxen*), 500 MG ORAL TWICE A DAY, (Reported) Pravastatin Sodium (Pravachol), 40 MG ORAL BEDTIME, (Reported) Sertraline Hcl* (Zoloft*), 50 MG ORAL DAILY, (Reported) Scheduled PRN Ondansetron Odt* (Zofran Odt*), 4 MG ORAL BID PRN for Nausea & Vomiting Miscellaneous Medications Apixaban (Eliquis), 5 MG PO, (Reported) Patient History Limited by: medical condition History Provided By: Patient, Medical Record, PMD Healthcare decision maker Resuscitation status Full Code Advanced Directive on File No Past Medical/Surgical History Past Medical/Surgical History: (1) Anemia (2) Diabetes (3) Dyspnea (4) Profound anemia (5) Right otitis media (6) Transient hypotension (7) Pulmonary embolism (8) Chest pain Review of Systems Psychiatric: Reports: prior hx, anxiety, depressed feelings Physical Exam General Appearance: no apparent distress, alert Neurologic: oriented x 3, responsive, depressed affect Last 24 Hour Vital Signs Date Time Temp Pulse Resp B/P (MAP) Pulse Ox O2 Delivery O2 Flow Rate FiO2 10/16/17 20:44 99.0 10/16/17 16:19 99.0 10/16/17 16:00 101 10/16/17 16:00 98.6 90 18 119/74 (89) 97 98.6 10/16/17 14:55 99.0 10/16/17 12:00 82 10/16/17 12:00 99.1 105 20 115/74 (88) 98 99.1 10/16/17 09:00 Room Air 10/16/17 08:00 99 10/16/17 08:00 99.0 95 20 121/74 (90) 95 99.0 10/16/17 04:00 103 10/16/17 04:00 97.9 91 20 100/66 (77) 95 97.9 10/16/17 00:01 Room Air 10/16/17 00:00 104 10/16/17 00:00 98.0 100 20 90/52 (65) 100 98.0 Intake and Output 10/15/17 10/16/17 19:00 07:00 Intake Total 120 ml Balance 120 ml Intake Oral 120 ml # Voids 1 Laboratory Tests Test 10/16/17 05:00 10/16/17 10:05 White Blood Count 8.3 K/UL (4.8-10.8) Red Blood Count 3.92 M/UL (4.20-5.40) L Hemoglobin 9.7 G/DL (12.0-16.0) L Hematocrit 31.0 % (37.0-47.0) L Mean Corpuscular Volume 79 FL (80-99) L Mean Corpuscular Hemoglobin 24.8 PG (27.0-31.0) L Mean Corpuscular Hemoglobin Concent 31.3 G/DL (32.0-36.0) L Red Cell Distribution Width 16.8 % (11.6-14.8) H Platelet Count 213 K/UL (150-450) Mean Platelet Volume 6.7 FL (6.5-10.1) Neutrophils (%) (Auto) 60.5 % (45.0-75.0) Lymphocytes (%) (Auto) 30.2 % (20.0-45.0) Monocytes (%) (Auto) 7.3 % (1.0-10.0) Eosinophils (%) (Auto) 1.7 % (0.0-3.0) Basophils (%) (Auto) 0.4 % (0.0-2.0) Differential Total Cells Counted 100 Neutrophils % (Manual) 58 % (45-75) Lymphocytes % (Manual) 28 % (20-45) Monocytes % (Manual) 8 % (1-10) Eosinophils % (Manual) 4 % (0-3) H Basophils % (Manual) 0 % (0-2) Band Neutrophils 2 % (0-8) Platelet Estimate Adequate Platelet Morphology Normal Hypochromasia 1+ Anisocytosis 1+ Microcytosis 1+ Reticulocyte Count 2.1 % (0.0-2.0) H Sickle Cell Screen Pending Fibrinogen 500 mg/dL (200-400) H Uric Acid 3.4 MG/DL (2.6-7.2) Iron Level 21 ug/dL (50-175) L Total Iron Binding Capacity 313 ug/dL (250-450) Percent Iron Saturation 7 % (15-50) L Unsaturated Iron Binding 292 ug/dL (112-346) Ferritin 6 NG/ML (8-388) L Vitamin B12 Level 538 PG/ML (193-986) Folate 13.4 NG/ML (8.6-58.9) Homocystine Pending Thyroid Stimulating Hormone (TSH) 2.441 uiU/mL (0.358-3.740) Height (Feet): 4 Height (Inches): 2.00 Weight (Pounds): 164 Medications Current Medications Medications (Trade) Dose Ordered Sig/Juan Route PRN Reason Start Time Stop Time Status Last Admin Dose Admin Acetaminophen (Tylenol) 650 mg Q4H PRN ORAL Mild Pain/Temp > 100.5 10/16/17 00:30 11/15/17 00:29 Dextrose (Dextrose 50%) 25 ml STAT PRN IV Hypoglycemia 10/16/17 00:30 11/15/17 00:29 Dextrose (Dextrose 50%) 50 ml STAT PRN IV Hypoglycemia 10/16/17 00:30 11/15/17 00:29 Insulin Aspart (NovoLOG) BEFORE MEALS AND HS SUBQ 10/16/17 06:30 11/15/17 06:29 10/16/17 20:43 Morphine Sulfate (Morphine Sulfate) 4 mg Q4H PRN IVP For Pain 10/16/17 02:28 10/23/17 02:27 10/16/17 20:44 Assessment/Plan Assessment/Plan mdd anxiety cont Cymbalta provided ro/Hannah Alcantara MD Oct 16, 2017 23:33
[2017-10-17] VITALS: BP 122/65
[2017-10-17] MEDS: Morphine Sulfate 4mg/ml Inj (IV USE ONLY) IVP PRN ×2 (01:13→23:14)
[2017-10-17 04:00] VITALS: BP 110/52
[2017-10-17] MEDS: NovoLOG Insulin Flexpen SUBQ SCH ×4 (06:41→20:38)
[2017-10-17 08:00] VITALS: BP 118/73
[2017-10-17] MEDS: DULoxetine 30mg cap ORAL SCH (09:10)
[2017-10-17 12:00] VITALS: BP 110/72
--- NOTE | 2017-10-17 14:01 | General Progress Note ---
Assessment/Plan Status: unchanged Assessment/Plan # Anemia of iron deficiency - unknown source, no hx of heavy menses --> microcytosis indices, has no baseline here --> consider gi eval as needed, occult blood PENDING --> anemia panel has been reviewed. Will trend CBC daily. --> transfuse to hgb >7 --> Current Hgb 9.7 --> Tx hx: 10/15 1 unit, 10/16 1 unit # DVT. # Right otitis media - consider exam and abx as needed --> rocephin given # Chest pain r/o acs # Diabetes. Pt on insulin. # Transient hypotension. The time the note was entered does not necessarily correspond to the time the patient was seen. Subjective Date patient seen: Oct 17, 2017 ROS Limited/Unobtainable: Yes Hematologic/Lymphatic: Reports: anemia Allergies: Coded Allergies: No Known Allergies (Unverified , 08/12/16) All Systems: reviewed and negative except above Subjective Pt awake and alert. S/P 1 unit, tolerated well.. Hgb improved to 9.7 Objective Last 24 Hour Vital Signs Date Time Temp Pulse Resp B/P (MAP) Pulse Ox O2 Delivery O2 Flow Rate FiO2 10/17/17 11:33 99.8 10/17/17 09:00 Room Air 10/17/17 08:00 99.8 96 18 118/73 (88) 100 99.8 10/17/17 04:00 98.1 86 20 110/52 (71) 97 98.1 10/17/17 04:00 90 10/17/17 01:44 98.7 10/17/17 01:13 98.7 10/17/17 00:00 97.9 84 18 122/65 (84) 97 97.9 10/17/17 00:00 98 10/16/17 21:00 Room Air 10/16/17 20:44 99.0 10/16/17 20:00 98.7 99 18 137/83 (101) 98 98.7 10/16/17 20:00 95 10/16/17 16:00 101 10/16/17 16:00 98.6 90 18 119/74 (89) 97 98.6 10/16/17 14:55 99.0 Intake and Output 10/16/17 10/17/17 19:00 07:00 Intake Total 740 ml Balance 740 ml Intake Oral 740 ml # Voids 6 2 Height (Feet): 4 Height (Inches): 2.00 Weight (Pounds): 164 General Appearance: no apparent distress, alert EENT: PERRL/EOMI Neck: normal alignment Cardiovascular: tachycardia Respiratory/Chest: no respiratory distress Abdomen: soft Leo Marlow MD Oct 17, 2017 14:01
[2017-10-17 16:00] VITALS: BP 115/63
[2017-10-17] MEDS ORDERED: Tubing Blood Filter IV ONE (17:16)
--- NOTE | 2017-10-17 17:24 | General Progress Note ---
Assessment/Plan Problem List: (1) Anemia ICD Codes: D64.9 - Anemia, unspecified SNOMED: 776031945 (2) Chest pain ICD Codes: R07.9 - Chest pain, unspecified SNOMED: 68121910 Qualifiers: Qualified Codes: R07.9 - Chest pain, unspecified (3) Diabetes ICD Codes: E11.9 - Type 2 diabetes mellitus without complications SNOMED: 73563658 Qualifiers: Qualified Codes: E11.8 - Type 2 diabetes mellitus with unspecified complications Status: progressing Assessment/Plan anemia improved no chest pain today dabetes ..surgars are improving afebrile reviewed chart and labs Subjective ROS Limited/Unobtainable: Yes Allergies: Coded Allergies: No Known Allergies (Unverified , 08/12/16) Objective Last 24 Hour Vital Signs Date Time Temp Pulse Resp B/P (MAP) Pulse Ox O2 Delivery O2 Flow Rate FiO2 10/17/17 13:59 99.8 10/17/17 11:33 99.8 10/17/17 09:00 Room Air 10/17/17 08:00 99.8 96 18 118/73 (88) 100 99.8 10/17/17 04:00 98.1 86 20 110/52 (71) 97 98.1 10/17/17 04:00 90 10/17/17 01:44 98.7 10/17/17 01:13 98.7 10/17/17 00:00 97.9 84 18 122/65 (84) 97 97.9 10/17/17 00:00 98 10/16/17 21:00 Room Air 10/16/17 20:44 99.0 10/16/17 20:00 98.7 99 18 137/83 (101) 98 98.7 10/16/17 20:00 95 Intake and Output 10/16/17 10/17/17 19:00 07:00 Intake Total 740 ml Balance 740 ml Intake Oral 740 ml # Voids 6 2 Height (Feet): 4 Height (Inches): 2.00 Weight (Pounds): 164 Cardiovascular: normal rate Respiratory/Chest: lungs clear Randy Stanley MD Oct 17, 2017 17:24
--- NOTE | 2017-10-17 18:41 | Pulmonology Progress Note ---
Assessment/Plan Assessment/Plan BTK DVT anemia obesity Plan: -monitor H/H -eliquis on hold ? 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 duplex with acute btk dvt left Objective Last 24 Hour Vital Signs Date Time Temp Pulse Resp B/P (MAP) Pulse Ox O2 Delivery O2 Flow Rate FiO2 10/17/17 16:00 101 10/17/17 16:00 98.8 103 18 115/63 (80) 100 98.8 10/17/17 13:59 99.8 10/17/17 12:00 98.6 94 18 110/72 (85) 100 98.6 10/17/17 12:00 88 10/17/17 11:33 99.8 10/17/17 09:00 Room Air 10/17/17 08:00 99.8 96 18 118/73 (88) 100 99.8 10/17/17 08:00 98 10/17/17 04:00 98.1 86 20 110/52 (71) 97 98.1 10/17/17 04:00 90 10/17/17 01:44 98.7 10/17/17 01:13 98.7 10/17/17 00:00 97.9 84 18 122/65 (84) 97 97.9 10/17/17 00:00 98 10/16/17 21:00 Room Air 10/16/17 20:44 99.0 10/16/17 20:00 98.7 99 18 137/83 (101) 98 98.7 10/16/17 20:00 95 Intake and Output 10/16/17 10/17/17 19:00 07:00 Intake Total 740 ml Balance 740 ml Intake Oral 740 ml # Voids 6 2 General Appearance: WD/WN HEENT: atraumatic, anicteric Respiratory/Chest: lungs clear, normal breath sounds Cardiovascular: normal rate, regularly irregular Abdomen: soft, non tender, no organomegaly Skin: no rash, no lesions 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, no motor/sensory deficits, oriented x 3 Current Medications Medications (Trade) Dose Ordered Sig/Juan Route PRN Reason Start Time Stop Time Status Last Admin Dose Admin Acetaminophen (Tylenol) 650 mg Q4H PRN ORAL Mild Pain/Temp > 100.5 10/16/17 00:30 11/15/17 00:29 10/17/17 11:33 Dextrose (Dextrose 50%) 25 ml STAT PRN IV Hypoglycemia 10/16/17 00:30 11/15/17 00:29 Dextrose (Dextrose 50%) 50 ml STAT PRN IV Hypoglycemia 10/16/17 00:30 11/15/17 00:29 Duloxetine HCl (Cymbalta) 60 mg DAILY ORAL 10/17/17 09:00 11/16/17 08:59 10/17/17 09:10 Insulin Aspart (NovoLOG) BEFORE MEALS AND HS SUBQ 10/16/17 06:30 11/15/17 06:29 10/17/17 17:41 Morphine Sulfate (Morphine Sulfate) 4 mg Q4H PRN IVP For Pain 10/16/17 02:28 10/23/17 02:27 10/17/17 01:13 Elise Butt DO Oct 17, 2017 18:41
[2017-10-17 20:00] VITALS: BP 117/73
--- NOTE | 2017-10-17 21:20 | Cardiology Progress Note ---
Assessment/Plan Assessment/Plan The patient is seen and examined, full consult note will be dictated shortly. Objective Last 24 Hour Vital Signs Date Time Temp Pulse Resp B/P (MAP) Pulse Ox O2 Delivery O2 Flow Rate FiO2 10/17/17 16:00 101 10/17/17 16:00 98.8 103 18 115/63 (80) 100 98.8 10/17/17 13:59 99.8 10/17/17 12:00 98.6 94 18 110/72 (85) 100 98.6 10/17/17 12:00 88 10/17/17 11:33 99.8 10/17/17 09:00 Room Air 10/17/17 08:00 99.8 96 18 118/73 (88) 100 99.8 10/17/17 08:00 98 10/17/17 04:00 98.1 86 20 110/52 (71) 97 98.1 10/17/17 04:00 90 10/17/17 01:44 98.7 10/17/17 01:13 98.7 10/17/17 00:00 97.9 84 18 122/65 (84) 97 97.9 10/17/17 00:00 98 Intake and Output 10/16/17 10/17/17 19:00 07:00 Intake Total 740 ml Balance 740 ml Intake Oral 740 ml # Voids 6 2 Milo Sears MD Oct 17, 2017 21:20
[2017-10-18] VITALS: BP 139/73
[2017-10-18 04:00] VITALS: BP 110/70
[2017-10-18] MEDS: NovoLOG Insulin Flexpen SUBQ SCH ×4 (06:13→21:12)
--- NOTE | 2017-10-18 07:07 | Pulmonology Progress Note ---
Assessment/Plan Assessment/Plan BTK DVT, hx of PE recently on eliquis, completed 3 months of therapy anemia obesity Plan: -monitor H/H -eliquis on hold ? VQ -FU with Gi recommendations -if unable to AC will need IVC filter Subjective Constitutional: Reports: no symptoms HEENT: Repors: no symptoms Respiratory: Reports: no symptoms Cardiovascular: Reports: no symptoms Gastrointestinal/Abdominal: Reports: no symptoms Allergies: Coded Allergies: No Known Allergies (Unverified , 08/12/16) Subjective doing well no bleeding no cp nv or fever no cough hx of dvt on eliquis for 3 mnths, but recently dc, currently not on any AC duplex with acute btk dvt left Objective Last 24 Hour Vital Signs Date Time Temp Pulse Resp B/P (MAP) Pulse Ox O2 Delivery O2 Flow Rate FiO2 10/18/17 04:00 98.2 86 20 110/70 (83) 99 98.2 10/18/17 04:00 84 10/18/17 00:00 95 10/18/17 00:00 98.0 98 20 139/73 (95) 98 98.0 10/17/17 21:00 Room Air 10/17/17 20:00 95 10/17/17 20:00 98.0 93 18 117/73 (88) 98 98.0 10/17/17 16:00 101 10/17/17 16:00 98.8 103 18 115/63 (80) 100 98.8 10/17/17 13:59 99.8 10/17/17 12:00 98.6 94 18 110/72 (85) 100 98.6 10/17/17 12:00 88 10/17/17 11:33 99.8 10/17/17 09:00 Room Air 10/17/17 08:00 99.8 96 18 118/73 (88) 100 99.8 10/17/17 08:00 98 Intake and Output 10/17/17 10/18/17 19:00 07:00 Intake Total 800 ml 300 ml Balance 800 ml 300 ml Intake Oral 800 ml 300 ml # Voids 6 2 General Appearance: WD/WN Respiratory/Chest: lungs clear, normal breath sounds Cardiovascular: normal rate, regular rhythm Abdomen: normal bowel sounds, soft, non tender, no organomegaly Extremities: no cyanosis Neurologic/Psychiatric: no motor/sensory deficits, alert, oriented x 3 Current Medications Medications (Trade) Dose Ordered Sig/Juan Route PRN Reason Start Time Stop Time Status Last Admin Dose Admin Acetaminophen (Tylenol) 650 mg Q4H PRN ORAL Mild Pain/Temp > 100.5 10/16/17 00:30 11/15/17 00:29 10/17/17 11:33 Dextrose (Dextrose 50%) 25 ml STAT PRN IV Hypoglycemia 10/16/17 00:30 11/15/17 00:29 Dextrose (Dextrose 50%) 50 ml STAT PRN IV Hypoglycemia 10/16/17 00:30 11/15/17 00:29 Duloxetine HCl (Cymbalta) 60 mg DAILY ORAL 10/17/17 09:00 11/16/17 08:59 10/17/17 09:10 Insulin Aspart (NovoLOG) BEFORE MEALS AND HS SUBQ 10/16/17 06:30 11/15/17 06:29 10/18/17 06:13 Morphine Sulfate (Morphine Sulfate) 4 mg Q4H PRN IVP For Pain 10/16/17 02:28 10/23/17 02:27 10/17/17 23:14 Elise Butt DO Oct 18, 2017 07:07
[2017-10-18 08:00] VITALS: BP 123/73
[2017-10-18] MEDS: DULoxetine 30mg cap ORAL SCH (08:40)
[2017-10-18 12:00] VITALS: BP 105/62
--- NOTE | 2017-10-18 14:47 | General Progress Note ---
Assessment/Plan Problem List: (1) Anemia ICD Codes: D64.9 - Anemia, unspecified SNOMED: 772516556 (2) Chest pain ICD Codes: R07.9 - Chest pain, unspecified SNOMED: 98019029 Qualifiers: Qualified Codes: R07.9 - Chest pain, unspecified (3) Diabetes ICD Codes: E11.9 - Type 2 diabetes mellitus without complications SNOMED: 29414399 Qualifiers: Qualified Codes: E11.8 - Type 2 diabetes mellitus with unspecified complications Status: progressing Assessment/Plan anemia no bleeding r/o acs no chest pain reviewed chart and labs nad Subjective ROS Limited/Unobtainable: Yes Constitutional: Reports: no symptoms Allergies: Coded Allergies: No Known Allergies (Unverified , 08/12/16) Objective Last 24 Hour Vital Signs Date Time Temp Pulse Resp B/P (MAP) Pulse Ox O2 Delivery O2 Flow Rate FiO2 10/18/17 12:00 97.1 87 18 105/62 (76) 98 97.1 10/18/17 11:55 102 10/18/17 09:00 Room Air 10/18/17 08:00 98.2 89 18 123/73 (90) 97 98.2 10/18/17 07:55 99 10/18/17 04:00 98.2 86 20 110/70 (83) 99 98.2 10/18/17 04:00 84 10/18/17 00:00 95 10/18/17 00:00 98.0 98 20 139/73 (95) 98 98.0 10/17/17 21:00 Room Air 10/17/17 20:00 95 10/17/17 20:00 98.0 93 18 117/73 (88) 98 98.0 10/17/17 16:00 101 10/17/17 16:00 98.8 103 18 115/63 (80) 100 98.8 Intake and Output 10/17/17 10/18/17 19:00 07:00 Intake Total 800 ml 300 ml Balance 800 ml 300 ml Intake Oral 800 ml 300 ml # Voids 6 2 Height (Feet): 4 Height (Inches): 2.00 Weight (Pounds): 164 Cardiovascular: normal rate Respiratory/Chest: lungs clear Randy Stanley MD Oct 18, 2017 14:47
[2017-10-18 16:00] VITALS: BP 132/71
[2017-10-18 20:00] VITALS: BP 116/72
[2017-10-18] MEDS: Morphine Sulfate 4mg/ml Inj (IV USE ONLY) IVP PRN (21:19)
--- NOTE | 2017-10-18 23:47 | Cardiology Progress Note ---
Assessment/Plan Assessment/Plan 1. Sinus tachycardia is most likely secondary to profound anemia, s/p blood transfusion. 2. High cardiac output heart failure is common if tachycardia is not improved in this situation. 3. Dyspnea on exertion most likely secondary to anemia. 4. Pulmonary embolism, off Eliquis. Subjective Subjective Sinus rhythm at 97. Objective Last 24 Hour Vital Signs Date Time Temp Pulse Resp B/P (MAP) Pulse Ox O2 Delivery O2 Flow Rate FiO2 10/18/17 21:00 Room Air 10/18/17 20:00 99.2 97 18 116/72 (87) 98 99.2 10/18/17 20:00 100 10/18/17 16:00 97.7 103 18 132/71 (91) 100 97.7 10/18/17 15:49 90 10/18/17 12:00 97.1 87 18 105/62 (76) 98 97.1 10/18/17 11:55 102 10/18/17 09:00 Room Air 10/18/17 08:00 98.2 89 18 123/73 (90) 97 98.2 10/18/17 07:55 99 10/18/17 04:00 98.2 86 20 110/70 (83) 99 98.2 10/18/17 04:00 84 10/18/17 00:00 95 10/18/17 00:00 98.0 98 20 139/73 (95) 98 98.0 Intake and Output 10/17/17 10/18/17 19:00 07:00 Intake Total 800 ml 300 ml Balance 800 ml 300 ml Intake Oral 800 ml 300 ml # Voids 6 2 Objective HEENT: Atraumatic and normocephalic. Anicteric. Pupils are equal, round, and reactive to light and accommodation. Extraocular muscles intact. There is presence of pale conjunctiva. NECK: JVP less than 5 cm. No carotid bruit. Carotid upstroke is 2+ bilaterally. CVS: Normal S1 and S2. Regular rhythm. Tachycardia. No murmurs, gallops, or rubs. PMI is at fourth intercostal space in the midclavicular line. LUNGS: Clear to auscultation bilaterally. ABDOMEN: Soft, nontender, nondistended. No hepatosplenomegaly. Positive bowel sounds. EXTREMITIES: No evidence of edema, clubbing, or cyanosis. Milo Sears MD Oct 18, 2017 23:47
[2017-10-19] VITALS: BP 155/79
[2017-10-19 04:00] VITALS: BP 106/69
--- NOTE | 2017-10-19 05:30 | Consultation ---
DATE OF CONSULTATION: 10/17/2017 CARDIOLOGY CONSULTATION CONSULTING PHYSICIAN: Milo Sears M.D. REFERRING PHYSICIAN: Randy Stanley M.D. REASON FOR CONSULTATION: Management of tachycardia. HISTORY OF PRESENT ILLNESS: The patient is a very unfortunate 47-year-old female who presents to the hospital with two to three days of sore throat and right ear pain. She was found to have hemoglobin of 7. I started to enquire about her symptoms, the patient admitted that she had dyspnea on exertion and chest pain with exertion. She claims that she takes Naprosyn for arthritis of her knees. Her risk factors of coronary artery disease including diabetes mellitus. On arrival today to the hospital, blood pressure was 100/62 mmHg and pulse rate of 112. She was admitted for profound anemia as her hemoglobin level was 7.7. Cardiology consultation was made at request of Dr. Stanley for assessment and management of tachycardia. PAST MEDICAL HISTORY: Diabetes mellitus, hypertension, history of anemia, pulmonary embolism. MEDICATIONS: List of medication includes apixaban 5 mg p.o. twice daily, Bentyl 10 mg p.o. twice daily for seven days, Cymbalta 60 mg p.o. daily, Pepcid 20 mg p.o. twice daily for seven days, gabapentin 300 mg at bedtime, lisinopril 10 mg p.o. daily, metformin 850 mg p.o. daily, Naprosyn 500 mg twice daily, Zofran 4 mg twice daily for seven days p.r.n. nausea and vomiting, Pravachol 40 mg p.o. at bedtime, and Zoloft 50 mg p.o. daily. ALLERGIES: No known drug allergies. SOCIAL HISTORY: Denies any tobacco, alcohol, or illicit drug use. FAMILY HISTORY: No premature coronary disease in first-degree relatives. REVIEW OF SYSTEMS: A 12-system review done essentially negative except what mentioned in the history of present illness. PHYSICAL EXAMINATION: VITAL SIGNS: Blood pressure 100/62, pulse of 112, respirations 20, O2 saturation 95% on room air, and temperature 98.2 degrees Fahrenheit. GENERAL: The patient is a very unfortunate 47-year-old female, in no apparent respiratory distress. Alert and oriented x4. HEENT: Atraumatic and normocephalic. Anicteric. Pupils are equal, round, and reactive to light and accommodation. Extraocular muscles intact. There is presence of pale conjunctiva. NECK: JVP less than 5 cm. No carotid bruit. Carotid upstroke is 2+ bilaterally. CVS: Normal S1 and S2. Regular rhythm. Tachycardia. No murmurs, gallops, or rubs. PMI is at fourth intercostal space in the midclavicular line. LUNGS: Clear to auscultation bilaterally. ABDOMEN: Soft, nontender, nondistended. No hepatosplenomegaly. Positive bowel sounds. EXTREMITIES: No evidence of edema, clubbing, or cyanosis. LABORATORY FINDINGS: WBC 10.7, hemoglobin 7.7, hematocrit 25, platelet count 239. Sodium 138, potassium is 4.2, chloride 104, bicarbonate 26, BUN 14, creatinine 1.0, glucose 186. Calcium 9.4. Troponin I is 0.0. INR was 1.0. Chest x-ray showed no acute cardiopulmonary disease. ASSESSMENT AND PLAN: The patient is a very unfortunate 47-year-old female, seen in Cardiology consultation at request of Dr. Stanley. 1. Sinus tachycardia is most likely secondary to profound anemia. Treatment is transfusing with packed RBC to keep hemoglobin and hematocrit approximately around 10 and 30 respectively. 2. High cardiac output heart failure is common if tachycardia is not improved in this situation. 3. Dyspnea on exertion most likely secondary to anemia. 4. Pulmonary embolism, off Eliquis. I would like to thank, Dr. Stanley, for allowing me to participate in care of this patient. Milo Sears M.D. DR: Sammi JOB#: [id number] CC: [email or web address]
[2017-10-19] MEDS: NovoLOG Insulin Flexpen SUBQ SCH ×2 (06:05→11:41)
[2017-10-19] MEDS: DULoxetine 30mg cap ORAL SCH (08:03)
[2017-10-19 08:13] VITALS: BP 125/83
--- NOTE | 2017-10-19 09:21 | Pulmonology Progress Note ---
Assessment/Plan Problems: (1) Dyspnea (2) Profound anemia (3) Right otitis media (4) Transient hypotension (5) Chest pain (6) Pulmonary embolism Assessment/Plan Plan: -monitor H/H, repeat labs now including ddimer -hold eliquis, for now but if H/H stable ?resuming -if no plans to resume anticoagulation will need to get details on PE/DVT original diagnosis to assess if IVC filter may be necessary -if continued downtrend in H/H and not felt to be GI bleeding or due to menses, may need to consider evaluation for retroperitoneal bleed Subjective Interval Events: No events. No labs since after transfusion. Duplex b/l LE with L DVT Allergies: Coded Allergies: No Known Allergies (Unverified , 08/12/16) Subjective denies shortness of breath, chest pain, lightheadedness Objective Last 24 Hour Vital Signs Date Time Temp Pulse Resp B/P (MAP) Pulse Ox O2 Delivery O2 Flow Rate FiO2 10/19/17 08:13 97.6 86 18 125/83 (97) 100 97.6 10/19/17 04:00 91 10/19/17 04:00 98.3 96 20 106/69 (81) 98 98.3 10/19/17 00:00 101 10/19/17 00:00 98.0 103 20 155/79 (104) 94 98.0 10/18/17 21:00 Room Air 10/18/17 20:00 99.2 97 18 116/72 (87) 98 99.2 10/18/17 20:00 100 10/18/17 16:00 97.7 103 18 132/71 (91) 100 97.7 10/18/17 15:49 90 10/18/17 12:00 97.1 87 18 105/62 (76) 98 97.1 10/18/17 11:55 102 Intake and Output 10/18/17 10/19/17 19:00 07:00 Intake Total 820 ml 120 ml Balance 820 ml 120 ml Intake Oral 820 ml 120 ml # Voids 8 1 General Appearance: WD/WN, no acute distress HEENT: normocephalic, atraumatic, anicteric Respiratory/Chest: lungs clear Cardiovascular: normal rate, regular rhythm Abdomen: soft, non tender Extremities: no edema Neurologic/Psychiatric: airfield engineer officer II-XII grossly normal Current Medications Medications (Trade) Dose Ordered Sig/Juan Route PRN Reason Start Time Stop Time Status Last Admin Dose Admin Acetaminophen (Tylenol) 650 mg Q4H PRN ORAL Mild Pain/Temp > 100.5 10/16/17 00:30 11/15/17 00:29 10/17/17 11:33 Dextrose (Dextrose 50%) 25 ml STAT PRN IV Hypoglycemia 10/16/17 00:30 11/15/17 00:29 Dextrose (Dextrose 50%) 50 ml STAT PRN IV Hypoglycemia 10/16/17 00:30 11/15/17 00:29 Duloxetine HCl (Cymbalta) 60 mg DAILY ORAL 10/17/17 09:00 11/16/17 08:59 10/19/17 08:03 Insulin Aspart (NovoLOG) BEFORE MEALS AND HS SUBQ 10/16/17 06:30 11/15/17 06:29 10/19/17 06:05 Morphine Sulfate (Morphine Sulfate) 4 mg Q4H PRN IVP For Pain 10/16/17 02:28 10/23/17 02:27 10/18/17 21:19 TRISTAN REBOLLAR Oct 19, 2017 09:21
[2017-10-19 10:17] LABS: BASOPHILS % (AUTO) 0.7 % (0.0-2.0); EOSINOPHILS % (AUTO) 2.5 % (0.0-3.0); HEMOGLOBIN 12.5 G/DL (12.0-16.0); LYMPHOCYTES % (AUTO) 24.1 % (20.0-45.0); MEAN CORPUSCULAR VOLUME 76 FL (80-99); MONOCYTES % (AUTO) 6.8 % (1.0-10.0); PLATELET COUNT 281 K/UL (150-450); RED CELL DISTRIBUTION WIDTH 15.5 % (11.6-14.8); WHITE BLOOD COUNT 6.8 K/UL (4.8-10.8)
[2017-10-19 10:32] LABS: ANION GAP 9 mmol/L (5-15); BLOOD UREA NITROGEN 15 mg/dL (7-18); CALCIUM 8.9 MG/DL (8.5-10.1); CARBON DIOXIDE 26 MMOL/L (21-32); CHLORIDE 99 MMOL/L (98-107); SODIUM 134 MMOL/L (136-145)
--- NOTE | 2017-10-19 11:30 | General Progress Note ---
Assessment/Plan Assessment/Plan mdd anxiety [facility] Subjective Date patient seen: Oct 19, 2017 Neurologic/Psychiatric: Reports: anxiety, depressed, emotional problems Allergies: Coded Allergies: No Known Allergies (Unverified , 08/12/16) Subjective not sleeping well Objective Last 24 Hour Vital Signs Date Time Temp Pulse Resp B/P (MAP) Pulse Ox O2 Delivery O2 Flow Rate FiO2 10/19/17 09:32 Room Air 10/19/17 08:13 97.6 86 18 125/83 (97) 100 97.6 10/19/17 04:00 91 10/19/17 04:00 98.3 96 20 106/69 (81) 98 98.3 10/19/17 00:00 101 10/19/17 00:00 98.0 103 20 155/79 (104) 94 98.0 10/18/17 21:00 Room Air 10/18/17 20:00 99.2 97 18 116/72 (87) 98 99.2 10/18/17 20:00 100 10/18/17 16:00 97.7 103 18 132/71 (91) 100 97.7 10/18/17 15:49 90 10/18/17 12:00 97.1 87 18 105/62 (76) 98 97.1 10/18/17 11:55 102 Intake and Output 10/18/17 10/19/17 19:00 07:00 Intake Total 820 ml 120 ml Balance 820 ml 120 ml Intake Oral 820 ml 120 ml # Voids 8 1 Laboratory Tests 10/19/17 10:05: White Blood Count 6.8, Red Blood Count 5.10, Hemoglobin 12.5, Hematocrit 39.0, Mean Corpuscular Volume 76L, Mean Corpuscular Hemoglobin 24.4L, Mean Corpuscular Hemoglobin Concent 32.0, Red Cell Distribution Width 15.5H, Platelet Count 281, Mean Platelet Volume 5.9L, Neutrophils (%) (Auto) 66.0, Lymphocytes (%) (Auto) 24.1, Monocytes (%) (Auto) 6.8, Eosinophils (%) (Auto) 2.5, Basophils (%) (Auto) 0.7, D-Dimer 0.27, Sodium Level 134L, Potassium Level 4.0, Chloride Level 99, Carbon Dioxide Level 26, Anion Gap 9, Blood Urea Nitrogen 15, Creatinine 1.0, Estimat Glomerular Filtration Rate > 60, Glucose Level 415H, Calcium Level 8.9 Height (Feet): 4 Height (Inches): 2.00 Weight (Pounds): 164 General Appearance: no apparent distress, alert Neurologic: oriented x 3, depressed affect Hannah Knox MD Oct 19, 2017 11:30
[2017-10-19 12:00] VITALS: BP 129/90
--- NOTE | 2017-10-19 23:42 | Cardiology Progress Note ---
Assessment/Plan Assessment/Plan 1. Sinus tachycardia is most likely secondary to profound anemia. 2. High cardiac output heart failure is common if tachycardia is not improved in this situation. 3. Dyspnea on exertion most likely secondary to anemia. 4. Pulmonary embolism, off Eliquis. Subjective Subjective Sinus tachycardia at 102. Objective Last 24 Hour Vital Signs Date Time Temp Pulse Resp B/P (MAP) Pulse Ox O2 Delivery O2 Flow Rate FiO2 10/19/17 12:00 98.3 102 20 129/90 (103) 98 98.3 10/19/17 09:32 Room Air 10/19/17 08:13 97.6 86 18 125/83 (97) 100 97.6 10/19/17 08:00 86 10/19/17 04:00 91 10/19/17 04:00 98.3 96 20 106/69 (81) 98 98.3 10/19/17 00:00 101 10/19/17 00:00 98.0 103 20 155/79 (104) 94 98.0 Intake and Output 10/18/17 10/19/17 19:00 07:00 Intake Total 820 ml 120 ml Balance 820 ml 120 ml Intake Oral 820 ml 120 ml # Voids 8 1 Laboratory Tests Test 10/19/17 10:05 White Blood Count 6.8 K/UL (4.8-10.8) Red Blood Count 5.10 M/UL (4.20-5.40) Hemoglobin 12.5 G/DL (12.0-16.0) Hematocrit 39.0 % (37.0-47.0) Mean Corpuscular Volume 76 FL (80-99) L Mean Corpuscular Hemoglobin 24.4 PG (27.0-31.0) L Mean Corpuscular Hemoglobin Concent 32.0 G/DL (32.0-36.0) Red Cell Distribution Width 15.5 % (11.6-14.8) H Platelet Count 281 K/UL (150-450) Mean Platelet Volume 5.9 FL (6.5-10.1) L Neutrophils (%) (Auto) 66.0 % (45.0-75.0) Lymphocytes (%) (Auto) 24.1 % (20.0-45.0) Monocytes (%) (Auto) 6.8 % (1.0-10.0) Eosinophils (%) (Auto) 2.5 % (0.0-3.0) Basophils (%) (Auto) 0.7 % (0.0-2.0) D-Dimer 0.27 mg/L FEU (0.00-0.49) Sodium Level 134 MMOL/L (136-145) L Potassium Level 4.0 MMOL/L (3.5-5.1) Chloride Level 99 MMOL/L (98-107) Carbon Dioxide Level 26 MMOL/L (21-32) Anion Gap 9 mmol/L (5-15) Blood Urea Nitrogen 15 mg/dL (7-18) Creatinine 1.0 MG/DL (0.55-1.30) Estimat Glomerular Filtration Rate > 60 mL/min (>60) Glucose Level 415 MG/DL (74-106) H Calcium Level 8.9 MG/DL (8.5-10.1) Objective HEENT: Atraumatic and normocephalic. Anicteric. Pupils are equal, round, and reactive to light and accommodation. Extraocular muscles intact. There is presence of pale conjunctiva. NECK: JVP less than 5 cm. No carotid bruit. Carotid upstroke is 2+ bilaterally. CVS: Normal S1 and S2. Regular rhythm. Tachycardia. No murmurs, gallops, or rubs. PMI is at fourth intercostal space in the midclavicular line. LUNGS: Clear to auscultation bilaterally. ABDOMEN: Soft, nontender, nondistended. No hepatosplenomegaly. Positive bowel sounds. EXTREMITIES: No evidence of edema, clubbing, or cyanosis. Milo Sears MD Oct 19, 2017 23:42
--- NOTE | 2017-10-21 09:36 | Discharge Summary ---
Discharge Summary Discharge Summary _ DATE OF ADMISSION: 10/15/2017 DATE OF DISCHARGE: 10/19/2017 REASON FOR ADMISSION: 47 years old female with past medical history of diabetes, hypertension, obesity , pulmonary emboli diagnosed the 4 months ago (no apparent evaluation for DVT, was on Eliquis), presented for 2 days of sore throat and right ear pain. She had been evaluated prior and and had blood work done 2 days ago. She had been called in due to low hemoglobin . Patient also reported chest pain and dyspnea on exertion. Chest pain reported as substernal, nonexertional. Patient reported lightheadedness when standing up quickly. No bleeding. No black or tarry stools, no abdominal pain, no heavy periods. Pain was reported in her throat and right ear. Patient reported as sharp , constant ,and worse with swallowing. Vital signs revealed no fever, but showed tachycardia. Blood pressure 100/60. Laboratory workup revealed hemoglobin 7.7, hematocrit 25 with MCV of 75. Glucose 186. Urinalysis revealed no evidence of UTI . Chest x-ray revealed no acute cardiopulmonary pathology. Abdominal x-ray revealed no acute intraabdominal pathology. Troponin negative , EKG revealed sinus tachycardia, no acute ischemic changes. Patient started on IV fluids and empiric antibiotics . Patient was admitted for further management with diagnoses of profound anemia, right otitis media, dyspnea, chest pain, diabetes mellitus, transient hypotension. CONSULTANTS: satellite installer Dr. Seasr pulmonary neonatologist/oncologist Dr. Marlow psychiatrist [facility] COURSE: Patient admitted to telemetry floor. Patient started on IV hydration. Patient was transfused with 2 units of packed red blood cells. Welding Pantograph Machine Operator closely followed. Eliquis initially stopped. Venous duplex bilateral lower extremity revealed acute DVT in the left lower extremity calf area. Supplemental oxygen provided as needed to keep pulse oximetry above 92%. Pulmonary toilet was on board as needed. Patient was on antibiotics for otitis media. Social Media Analyst closely followed. Troponin negative, ECG without ischemic changes. According to satellite installer, dyspnea on exertion and sinus tachycardia were likely secondary to profound anemia and resolved after hemoglobin and hematocrit stabilized. TSH within normal limits . Blood pressure stabilized. Clinical Trials Systems Administrator followed. Anemia workup was consistent with anemia of iron deficiency. Iron supplement recommended on discharge. D-dimer within normal limits. GI prophylaxis provided. Vitamin B12 , folate within normal limits as well as homocysteine. Sickle cell screen negative. Prior to discharge hemoglobin 12.5 , hematocrit 39. Eliquis was resumed. Psychiatrist seen and evaluated patient , and diagnosed patient with major depressive disorder and anxiety disorder. Reality orientation and supportive therapy provided. Patient started on Cymbalta and Restoril as needed. Patient was discharged on Eliquis. Recommended to consider IVC filter and discuss it with primary care provider . FINAL DIAGNOSES: Profound anemia, requiring blood transfusion Iron deficiency anemia Right otitis media Acute DVT left lower extremity (calf area) History of PE Transient hypotension Diabetes Obesity Major depressive disorder Anxiety disorder DISCHARGE MEDICATIONS: See Medication Reconciliation list. Continue Eliquis. Consider iron supplements. DISCHARGE INSTRUCTIONS: Patient discharged home on Eliquis. Follow up with primary care provided in one week. ED precautions reinforced. Consider IVC filter placement. I have been assigned to dictate discharge summary for this account. I was not involved in the patient's management. Ileana Kim NP Oct 21, 2017 09:36
--- NOTE | 2017-10-23 00:52 | Cardiology Report ---
APPROVED REPORT EKG Measurement Heart [id number] Sinus tachycardia Otherwise normal ECG
== END 2017-10-19 15:20 | disposition home or self-care (01) | DRG 663 ==
LOC: EMR 20:15 → EDBEDREQ 22:06 → 2E 22:18 → EDBEDREQ 22:45
PROC: 30233N1 Transfusion of Nonautologous Red Blood Cells into Peripheral Vein, Percutaneous Approach (ICD-10-PCS; principal; 2017-10-15)
DX: D50.9 Iron deficiency anemia, unspecified (principal); I95.9 Hypotension, unspecified; I82.4Z2 Acute embolism and thrombosis of unspecified deep veins of left distal lower extremity; E78.5 Hyperlipidemia, unspecified; I10 Essential (primary) hypertension; R07.9 Chest pain, unspecified; Z79.01 Long term (current) use of anticoagulants; Z86.711 Personal history of pulmonary embolism; Z79.84 Long term (current) use of oral hypoglycemic drugs; H66.91 Otitis media, unspecified, right ear; E11.9 Type 2 diabetes mellitus without complications; R00.0 Tachycardia, unspecified; M17.0 Bilateral primary osteoarthritis of knee; R06.00 Dyspnea, unspecified; F32.9 Major depressive disorder, single episode, unspecified; F41.9 Anxiety disorder, unspecified; E66.9 Obesity, unspecified
CPT/HCPCS: 36415; 71045; 74018; 80048; 80053; 81003; 81025; 82607; 82728; 82746; 82962; 83090; 83540; 83550; 83690; 84443; 84484; 84550; 85007; 85025; 85044; 85060; 85379; 85384; 85610; 85660; 85730; 86850; 86900; 86901; 86920; 93005; 93970; J1815; J2405

== ENCOUNTER 2018-07-08 16:16 | Emergency (ER) | payer MEDICAID, OTHER ==
[~2018-07-08] VITALS: Ht 129.5 cm; Wt 77.1 kg
[~2018-07-08 16:16] MED LIST changes: +CYMBALTA60 MG ORAL; +ELIQUIS5 MG PO; +GABAPENTIN300 MG ORAL; +METFORMIN HCL850 M1 ORAL; +NAPROXEN500 M1 ORAL; +PRAVACHOL40 MG ORAL; +PRINIVIL10 MG ORAL; +SERTRALINE HCL50 MG ORAL
--- NOTE | 2018-07-08 16:20 | NUR ---
ED Nurse Note: pt came to ED with daughter from home, pt A&Ox4. C/O headache 12/09, chills, black discoloration on tongue and nosebleed yesterday. Pt VSS.
[2018-07-08] MEDS ORDERED: LANTUS SOL100 UNIT/1 SUBQ (16:23)
[2018-07-08 16:25] VITALS: BP 101/62
[2018-07-08] MEDS ORDERED: Morphine Sulfate 2mg/ml Inj(IV/IM USE ONLY) IVP ONE (16:45)
--- NOTE | 2018-07-08 16:58 | Emergency Room Report ---
History of Present Illness General Chief Complaint: General Complaint Source: Patient, Medical Record Present Illness HPI Patient presents emergency department today complaint lower back pain diffuse body pain. Patient states that she has a history of DVT and pulmonary embolism. She is supposed to be taking Eliquis but for some reason has not been taking it because she ran out of medications. She states that she had a change of doctors now she does not know who her doctor is and she ran out of Eliquis and was not refilled. She also has history of anemia. She states that she had blood transfusions in the past. Patient has been admitted here before in the past last year. No other complaints are noted other than a generalized weakness body aches. Symptoms noted to be moderate to severe. Patient denies any leg pain leg swelling that is unilateral. She does have diffuse body aches and diffuse body pain including her legs. Denies any chest pain or shortness of breath. No other modifying factors. No other associated signs and symptoms. No other complaints were noted. Allergies: Coded Allergies: No Known Allergies (Unverified , 08/12/16) Patient History Past Medical History: DM, HTN, CAD, other Past Surgical History: none Pertinent Family History: none Social History: Denies: smoking, alcohol use, drug use Last Menstrual Period: menopause Reviewed Nursing Documentation: PMH: Agreed; PSxH: Agreed Nursing Documentation-PMH Past Medical History: No History, Except For Hx Cardiac Problems: Yes Hx Hypertension: Yes Hx Diabetes: Yes Hx Cancer: No Hx Gastrointestinal Problems: No Hx Neurological Problems: No Review of Systems All Other Systems: negative except mentioned in HPI Physical Exam Vital Signs Date Time Temp Pulse Resp B/P (MAP) Pulse Ox O2 Delivery O2 Flow Rate FiO2 07/08/18 16:20 98.1 104 18 97 Room Air Sp02 EP Interpretation: reviewed, normal General Appearance: normal inspection, well appearing, no apparent distress, alert Head: atraumatic Eyes: bilateral eye normal inspection ENT: normal ENT inspection, hearing grossly normal, normal voice Neck: normal inspection, full range of motion, supple, no bony tend Respiratory: normal inspection, lungs clear, normal breath sounds, no respiratory distress, no retraction, no wheezing Cardiovascular #1: regular rate, rhythm, no edema Gastrointestinal: normal inspection, normal bowel sounds, non tender, soft, no guarding, no hernia Genitourinary: no CVA tenderness Musculoskeletal: normal inspection, back normal, normal range of motion Neurologic: normal inspection, alert, responsive, speech normal Psychiatric: normal inspection, judgement/insight normal, mood/affect normal Skin: normal inspection, normal color, no rash Medical Decision Making Diagnostic Impression: Primary Impression: UTI (urinary tract infection) Additional Impressions: Anemia Generalized body aches Generalized weakness ER Course Patient presents to the emergency department today complaint generalized weakness. Patient states that she has a history of DVT and pulmonary embolism was taking Eliquis until recently. She is complained diffuse body aches. Differential considerations include infectious process, severe anemia, UTI, GI bleeding, pulmonary embolism, DVT just name a few. Given the severity of the patient's presentation I felt this is a highly complex patient. This patient required extensive workup. Patient's laboratory work-up does show persistent anemia. However this is not significant to the point where patient requires transfusion. Patient's urine was positive for UTI. I feel the patient would benefit from antibiotics. Patient will be started on Keflex. Patient had bilateral lower extremity ultrasound which was negative for DVT. Patient chest x-ray is also negative. Patient's x-ray lumbar spine was also negative. Given patient had a negative work-up is feeling better after the patient be discharged home. Will provide prescription for Keflex. Recommend close outpatient follow-up. Patient was given copies of her laboratory results. Patient is advised to follow up with primary doctor in 2-3 days and return the emergency room for any worsening symptoms and as needed. Labs Test 07/08/18 17:20 White Blood Count 7.7 K/UL (4.8-10.8) Red Blood Count 4.34 M/UL (4.20-5.40) Hemoglobin 8.9 G/DL (12.0-16.0) Hematocrit 29.2 % (37.0-47.0) Mean Corpuscular Volume 67 FL (80-99) Mean Corpuscular Hemoglobin 20.4 PG (27.0-31.0) Mean Corpuscular Hemoglobin Concent 30.3 G/DL (32.0-36.0) Red Cell Distribution Width 18.8 % (11.6-14.8) Platelet Count 275 K/UL (150-450) Mean Platelet Volume 5.3 FL (6.5-10.1) Neutrophils (%) (Auto) 63.9 % (45.0-75.0) Lymphocytes (%) (Auto) 28.2 % (20.0-45.0) Monocytes (%) (Auto) 5.2 % (1.0-10.0) Eosinophils (%) (Auto) 2.1 % (0.0-3.0) Basophils (%) (Auto) 0.6 % (0.0-2.0) Prothrombin Time 10.1 SEC (9.30-11.50) Prothromb Time International Ratio 1.0 (0.9-1.1) Activated Partial Thromboplast Time 24 SEC (23-33) Urine Color Aide Urine Appearance Slightly cloudy Urine pH 5 (4.5-8.0) Urine Specific [place] 1.025 (1.005-1.035) Urine Protein 2+ (NEGATIVE) Urine Glucose (UA) Negative (NEGATIVE) Urine Ketones 1+ (NEGATIVE) Urine Blood Negative (NEGATIVE) Urine Nitrite Negative (NEGATIVE) Urine Bilirubin 3+ (NEGATIVE) Urine Ictotest Negative (NEGATIVE) Urine Urobilinogen 1 MG/DL (0.0-1.0) Urine Leukocyte Esterase 2+ (NEGATIVE) Urine RBC 0-2 /HPF (0 - 2) Urine WBC 5-10 /HPF (0 - 2) Urine Squamous Epithelial Cells Few /LPF (NONE/OCC) Urine Bacteria Moderate /HPF (NONE) Urine Mucus Moderate /LPF (NONE/OCC) Sodium Level 136 MMOL/L (136-145) Potassium Level 3.8 MMOL/L (3.5-5.1) Chloride Level 101 MMOL/L (98-107) Carbon Dioxide Level 28 MMOL/L (21-32) Anion Gap 8 mmol/L (5-15) Blood Urea Nitrogen 14 mg/dL (7-18) Creatinine 1.0 MG/DL (0.55-1.30) Estimat Glomerular Filtration Rate > 60 mL/min (>60) Glucose Level 119 MG/DL (74-106) Calcium Level 8.8 MG/DL (8.5-10.1) Total Bilirubin 0.4 MG/DL (0.2-1.0) Aspartate Amino Transf (AST/SGOT) 17 U/L (15-37) Alanine Aminotransferase (ALT/SGPT) 23 U/L (12-78) Alkaline Phosphatase 106 U/L (46-116) Total Creatine Kinase 58 U/L (26-308) Creatine Kinase MB 0.5 NG/ML (0.0-3.6) Creatine Kinase MB Relative Index 0.8 Troponin I 0.000 ng/mL (0.000-0.056) Pro-B-Type Natriuretic Peptide 27 pg/mL (0-125) Total Protein 7.7 G/DL (6.4-8.2) Albumin 3.7 G/DL (3.4-5.0) Globulin 4.0 g/dL Albumin/Globulin Ratio 0.9 (1.0-2.7) EKG Diagnostic Results Rate: normal Rhythm: NSR ST Segments: no acute changes Rhythm Strip Diag. Results EP Interpretation: yes Rate: 98 Rhythm: NSR, no PVC's, no ectopy Chest X-Ray Diagnostic Results Chest X-Ray Diagnostic Results : Chest X-Ray Ordered: Yes # of Views/Limited/Complete: 1 View Indication: Chest Pain EP Interpretation: Yes Interpretation: no consolidation, no effusion, no pneumothorax, no acute cardiopulmonary disease Impression: No acute disease Electronically Signed by: Electronically signed by Tony Covington MD Other X-Ray Diagnostic Results Other X-Ray Diagnostic Results : X-Ray ordered: Lumbar x-ray # of Views/Limited Vs Complete: 3 View Indication: Pain Interpretation: no dislocation, no soft tissue swelling, no fractures Impression: No acute disease Electronically Signed by: Electronically signed by Tony Covington MD Last Vital Signs Date Time Temp Pulse Resp B/P (MAP) Pulse Ox O2 Delivery O2 Flow Rate FiO2 07/08/18 16:20 98.1 104 18 97 Room Air Status: improved Disposition: HOME, SELF-CARE Condition: Stable Scripts Cephalexin* (KEFLEX*) 500 Mg Capsule 500 MG ORAL EVERY 6 HOURS for 7 Days, CAP Prov: Tony Covington MD 07/08/18 Referrals: [facility],REFERRING (PCP) Tony Covington MD July 08, 2018 16:58
[2018-07-08 17:38] LABS: BASOPHILS % (AUTO) 0.6 % (0.0-2.0); EOSINOPHILS % (AUTO) 2.1 % (0.0-3.0); HEMATOCRIT 29.2 % (37.0-47.0); HEMOGLOBIN 8.9 G/DL (12.0-16.0); LYMPHOCYTES % (AUTO) 28.2 % (20.0-45.0); MEAN CORPUSCULAR VOLUME 67 FL (80-99); MONOCYTES % (AUTO) 5.2 % (1.0-10.0); NEUTROPHILS % (AUTO) 63.9 % (45.0-75.0); PLATELET COUNT 275 K/UL (150-450); RED BLOOD COUNT 4.34 M/UL (4.20-5.40); RED CELL DISTRIBUTION WIDTH 18.8 % (11.6-14.8); WHITE BLOOD COUNT 7.7 K/UL (4.8-10.8)
[2018-07-08 17:49] LABS: APPEARANCE,URINE SLIGHTLY CLOUDY; BILIRUBIN, URINE 3+ (NEGATIVE); GLUCOSE, URINE (UA) NEGATIVE (NEGATIVE); KETONES,URINE 1+ (NEGATIVE); LEUKOCYTE ESTERASE ,URINE 2+ (NEGATIVE); NITRITE,URINE NEGATIVE (NEGATIVE); PH,URINE 5 (4.5-8.0); PROTEIN,URINE 2+ (NEGATIVE); UROBILINOGEN,URINE 1 MG/DL (0.0-1.0)
[2018-07-08 17:53] LABS: ANION GAP 8 mmol/L (5-15); BLOOD UREA NITROGEN 14 mg/dL (7-18); CALCIUM 8.8 MG/DL (8.5-10.1); CARBON DIOXIDE 28 MMOL/L (21-32); CHLORIDE 101 MMOL/L (98-107); COLOR,URINE AMBER; POTASSIUM 3.8 MMOL/L (3.5-5.1); SODIUM 136 MMOL/L (136-145)
[2018-07-08 18:06] LABS: ALANINE AMINOTRANSFERASE 23 U/L (12-78); ALBUMIN 3.7 G/DL (3.4-5.0); ALBUMIN/GLOBULIN RATIO 0.9 (1.0-2.7); ALKALINE PHOSPHATASE 106 U/L (46-116); ASPARTATE AMINO TRANSFERASE 17 U/L (15-37); BILIRUBIN,TOTAL 0.4 MG/DL (0.2-1.0); CKMB 0.5 NG/ML (0.0-3.6); CREATINE KINASE 58 U/L (26-308)
[2018-07-08] MEDS ORDERED: CEPHALEXIN500 MG ORAL (18:14)
[2018-07-08 18:33] VITALS: BP 101/62
--- NOTE | 2018-07-08 18:33 | NUR ---
ER DISCHARGE NOTE: Patient is cleared to be discharged per ERMD, pt is aox4, on room air, with stable vital signs. pt was given dc and prescription instructions, pt was able to verbalize understanding, pt id band and iv site removed without complications. pt is able to ambulate with steady gait. pt took all belongings.
--- NOTE | 2018-07-09 12:22 | Diagnostic Imaging Report ---
Indication: Back pain Comparison: None Findings: 3 views of the lumbar spine were obtained. Alignment is normal. Bones are osteopenic. Minimal endplate spurs are noted. No fracture identified. Soft tissues are unremarkable. Cholecystectomy clips noted. IMPRESSION: No acute findings
--- NOTE | 2018-07-09 12:23 | Diagnostic Imaging Report ---
Indication: Chest pain Comparison: 10/15/2017 A single view chest radiograph was obtained. Findings: Cardiomediastinal appearance is within normal limits for age. The lungs are clear. Pulmonary vascularity is appropriate. The diaphragmatic contour is smooth and costophrenic angles are sharp. No pleural effusions are identified. The bones are unremarkable. Impression: No acute findings
--- NOTE | 2018-07-09 14:23 | Cardiology Report ---
APPROVED REPORT EKG Measurement Heart [id number] OR [id number] Normal sinus rhythm Normal ECG
== END 2018-07-08 18:53 | disposition home or self-care (01) ==
LOC: EMR 16:50
DX: N39.0 Urinary tract infection, site not specified (principal); D64.9 Anemia, unspecified; M79.10 Myalgia, unspecified site; R53.1 Weakness; I10 Essential (primary) hypertension; E11.9 Type 2 diabetes mellitus without complications; I25.10 Atherosclerotic heart disease of native coronary artery without angina pectoris
CPT/HCPCS: 36415; 71045; 72020; 80053; 81003; 82550; 82553; 83880; 84484; 85025; 85610; 85730; 87086; 93005; 93970; 96374; 99284; J2270

== ENCOUNTER 2019-02-01 13:10 | Emergency (ER) | payer MEDICAID ==
[~2019-02-01] VITALS: Ht 127 cm; Wt 75.7 kg
[~2019-02-01 13:10] MED LIST changes: +CEPHALEXIN500 MG ORAL; +LANTUS SOL100 UNIT/1 SUBQ
[2019-02-01 13:45] VITALS: BP 119/58
--- NOTE | 2019-02-01 13:45 | NUR ---
ED Nurse Note: Patient walked into ED c/o right hand/ arm and left hand 8/10 shooting and constant pain. As per patient, pain is aggreviated by movement. Pt has history of DM. Not in any distress. VSS.
--- NOTE | 2019-02-01 13:50 | NUR ---
ED Nurse Note: ERMD at bedside.
--- NOTE | 2019-02-01 13:57 | Emergency Room Report ---
History of Present Illness General Chief Complaint: Pain Source: Patient Present Illness HPI Disclaimer: Please note that this report is being documented using DRAGON technology. This can lead to erroneous entry secondary to incorrect interpretation by the dictating instrument. HPI: 48-year-old female with history of diabetes presents for evaluation of bilateral arm pain. Symptoms began several weeks ago. She notes a burning and aching sensation the beginning in the base of the right thumb tracking upwards over the forearm. She reports burning without overlying skin changes, edema and no trauma was reported. Few days ago she started experiencing the same sensation in the thenar eminence of the left thumb. Again no injury, skin changes, breakdown or systemic symptoms reported. Reports that this is a similar sensation to the pain she had in her lower legs when she was diagnosed with neuropathy. She is on 900 mg gabapentin daily. Compliant with her metformin and Lantus therapy. States sugars are well controlled. Denies any recent fever, chills, vomiting, diarrhea, back pain, neck injury or other symptoms. Denies weakness in the extremities though does report some stiffness in the morning. Is also been taking naproxen for arthritis. PMH: Diabetes, hypertension, hyperlipidemia, neuropathy PSH: Denies Allergies: Denies Social Hx: Denies alcohol or drug use Allergies: Coded Allergies: No Known Allergies (Unverified , 08/12/16) Patient History Last Menstrual Period: 5 years ago Now: No Nursing Documentation-PMH Past Medical History: No History, Except For Hx Cardiac Problems: Yes - DM II, high cholesterol, HTN, depression Hx Hypertension: Yes Hx Diabetes: Yes Hx Cancer: No Hx Gastrointestinal Problems: No Hx Neurological Problems: No Review of Systems All Other Systems: negative except mentioned in HPI Physical Exam Vital Signs Date Time Temp Pulse Resp B/P (MAP) Pulse Ox O2 Delivery O2 Flow Rate FiO2 02/01/19 13:37 99.0 88 18 119/58 (78) 95 Room Air General: Awake and alert, no acute distress HEENT: NC/AT. EOMI. Resp: Normal work of breathing Skin: Intact. No abrasions, laceration or rash over the exposed skin MSK: Normal tone and bulk. Moving all extremities. No obvious deformity. Strength is 5/5 in the fingers, wrist, elbows and shoulders bilaterally. Sensation is intact over the dermatomes of the upper extremities bilaterally. There is subjective tenderness palpation over the right forearm without obvious deformity or limitation in range of motion testing. Neuro: Awake and alert. Mentating appropriately Medical Decision Making Diagnostic Impression: Primary Impression: Neuropathy Additional Impression: Hand pain ER Course 48-year-old female presents for evaluation of bilateral hand pain and burning sensation of the skin. No evidence of vesicles, skin breakdown that would suggest a cellulitis, osteomyelitis, zoster infection. This may be a neuropathic pain and the patient will need follow-up with her PMD. May need to increase her gabapentin and put on a different NSAID. She can be discharged for outpatient follow-up. Do not believe she requires emergent blood work or imaging at this time as there is no trauma and she has full range of motion and strength testing. Discussed reasons to return to the emergency department as well as need to follow-up with her PMD. She understands and agrees with this treatment plan will be discharged home. Last Vital Signs Date Time Temp Pulse Resp B/P (MAP) Pulse Ox O2 Delivery O2 Flow Rate FiO2 02/01/19 13:45 99.0 88 18 119/58 95 Room Air Disposition: HOME, SELF-CARE Condition: Stable Referrals: [facility],REFERRING (PCP) Wu Iglesias MD Feb 01, 2019 13:57
[2019-02-01 14:01] VITALS: BP 119/58
--- NOTE | 2019-02-01 14:01 | NUR ---
ED Nurse Note: Pt cleared by ERMD for discharge. DC instructions was given and explained to pt and verbalized understanding of teachings. All medical deviecs such as ID band removed. Pt is AAO x4, ambulatory and left with all personal belongings.
== END 2019-02-01 14:01 | disposition home or self-care (01) ==
LOC: EMR 13:51
DX: E11.40 Type 2 diabetes mellitus with diabetic neuropathy, unspecified (principal); M25.542 Pain in joints of left hand; M25.541 Pain in joints of right hand; I10 Essential (primary) hypertension; E78.5 Hyperlipidemia, unspecified; F32.9 Major depressive disorder, single episode, unspecified
CPT/HCPCS: 99282